=== PATIENT | female | born 1930 | race Hispanic/Latino ===

== ENCOUNTER 2016-12-18 15:25 | Inpatient (IN) | payer MEDICARE ==
[2016-12-18] MEDS ORDERED: Sodium Chloride 0.9% 500 ML IV STA (15:56)
--- NOTE | 2016-12-18 15:57 | ED PDOC ---
HPI: Abdomen Time Seen by Provider: 12/18/16 15:44 Chief Complaint (Nursing): Abdominal Pain Chief Complaint (Provider): Abdominal Pain History Per: Patient History/Exam Limitations: no limitations Onset/Duration Of Symptoms: Days Current Symptoms Are (Timing): Still Present Additional Complaint(s): 85 y/o female with a past medical history of hypertension who presents to the emergency department with a complaint of constipation and abdominal discomfort since 12/09/2016. Associated with urinating less then usual. Patient states she experienced diarrhea from 12/05/2016-12/08/2016 after taking plaquenil for 3 weeks, she consulted her doctor who told her pills had no association with symptom. Reports taking 3 laxatives on 12/16/2016, and then used fleet along with 2 more laxative pills on 12/17/2016 with very small amount of stool. Denies using blood thinners, vision changes, dysuria, chest pain, fever, chills , or shortness of breath. Of note, patient visited [facility] about 1.5 weeks ago for diarrhea, given Magnesium with IV fluids, and discharged home after feeling better. Past Medical History Reviewed: Historical Data, Nursing Documentation, Vital Signs Vital Signs: Last Vital Signs Temp 97.6 F 12/18/16 15:30 Pulse 72 12/18/16 15:30 Resp 16 12/18/16 15:30 BP 164/75 H 12/18/16 15:30 Pulse Ox 97 12/18/16 22:14 - Medical History PMH: Arthritis, HTN, Hypercholesterolemia Denies: Hyperthyroidism, Chronic Kidney Disease - Surgical History Surgical History: (x4) - Family History Family History: States: Unknown Family Hx - Social History Alcohol: None Drugs: Denies - Home Medications Home Medications: Ambulatory Orders Medication Instructions Recorded Ascorbic Acid [Vitamin C] 1 tab PO DAILY 06/26/15 Aspirin [Aspirin EC] 81 mg PO DAILY 06/26/15 Atenolol [Tenormin] 50 mg PO DAILY 06/26/15 Calcium Carbonate/Vitamin D3 1 tab PO BID 06/26/15 [Calcium 600 + Vit D Caplet] Cinnamon Bark [Cinnamon] 1,000 mg PO DAILY 06/26/15 Hydrochlorothiazide [HCTZ] 1 tab PO DAILY 06/26/15 Lovastatin [Lovastatin] 1 tab PO HS 06/26/15 Patient Own Control [Patient Own 1 tab PO TID 06/26/15 Control] amLODIPine [Norvasc] 1 tab PO DAILY 06/26/15 Azithromycin [Zithromax] 250 mg PO DAILY #5 tab 06/27/15 Docusate [Colace] 100 mg PO BID #0 cap 06/27/15 Ferrous Sulfate 325 mg PO BID #0 tablet 06/27/15 Oseltamivir Phosphate [Tamiflu] 75 mg PO BID #5 capsule 06/27/15 Ibuprofen [Motrin] 600 mg PO Q6 PRN #20 tab 05/14/16 - Allergies Allergies/Adverse Reactions: Allergies Allergy/AdvReac Type Severity Reaction Status Date / Time iodine AdvReac VOMITING Verified 12/18/16 15:52 Review of Systems ROS Statement: Except As Marked, All Systems Reviewed And Found Negative Constitutional: Negative for: Fever, Chills Eyes: Negative for: Vision Change Respiratory: Negative for: Cough, Shortness of Breath Gastrointestinal: Positive for: Abdominal Pain, Diarrhea (Had resolved since), Constipation Genitourinary Female: Positive for: Other (Urinating less than usual). Negative for: Dysuria Physical Exam - Reviewed Nursing Documentation Reviewed: Yes Vital Signs Reviewed: Yes - Physical Exam Appears: Positive for: Non-toxic, No Acute Distress Head Exam: Positive for: ATRAUMATIC, NORMAL INSPECTION, NORMOCEPHALIC Skin: Positive for: Normal Color, Warm, Dry Eye Exam: Positive for: Normal appearance, EOMI ENT: Positive for: Normal ENT Inspection. Negative for: Nasal Congestion Neck: Positive for: Normal, Painless ROM, Supple Cardiovascular/Chest: Positive for: Regular Rate, Rhythm, Chest Non Tender. Negative for: Murmur Respiratory: Positive for: Normal Breath Sounds. Negative for: Accessory Muscle Use, Wheezing, Respiratory Distress Gastrointestinal/Abdominal: Positive for: Soft, Tenderness (Diffuse). Negative for: Normal Exam, Distended, Guarding Back: Positive for: Normal Inspection. Negative for: L CVA Tenderness, R CVA Tenderness Extremity: Positive for: Normal ROM. Negative for: Tenderness, Pedal Edema Neurologic/Psych: Positive for: Alert, Oriented (x3) - Laboratory Results Result Diagrams: 12/18/16 16:42 12/18/16 16:42 Interpretation Of Abn Labs: 11.2 wbc - ECG O2 Sat by Pulse Oximetry: 97 (RA) Pulse Ox Interpretation: Normal - CT Scan/US ct Other Rad Studies (CT/US): Read By Radiologist Other Rad Interpretation: diverticulitis, ?microperf - Progress ED Course And Treament: 2246: Stable. AAOx3. Pain free. Will admit pt. Dr. Concepcion spoken to and will consult. Agree with current plans. Spoke with Dr. Field, will admit and give further orders when pt. reaches floor. Surgery resident paged. 2308: Spoke with neurosurgical physician assistant. Will consult and he will speak with Dr. Morris. Medical Decision Making Medical Decision Making: Time: 155 Initial impression: Abdominal pain and constipation Initial plan: --CMP --Troponin I --Urine DIP --CBC w/ diff --PTT & Prothrombin --Obstructive Series --Sodium Chloride 100 mls/hr IV --Admit to hospital routine: ED Obs for abdominal pain. 170 Obstructive Series Dictated By: Dilip Patten MD. Findings: Chest: Lungs Clear Cardiovascular: normal size heart. No pulmonary vascular congestion. Pleura: No pleural fluid. No pneumothorax. Other findings: none. Abdomen and Pelvis: Bowel- unremarkable bowel gas pattern. No evidence of mechanical obstruction. Free Air: None Bones: Unremarkable Other findings: None Impression: Unremarkable radiographs of chest and abdomen. No evidence of mechanical bowel obstruction. Any further documentation will be included within ED Obs section of chart. Scribe Attestation: Documented by Blanquita Roberts and Marlen parker, acting as a scribe for Hilton Nice MD. Provider Scribe Attestation: All medical record entries made by the Scribe were at my direction and personally dictated by me. I have reviewed the chart and agree that the record accurately reflects my personal performance of the history, physical exam, medical decision making, and the department course for this patient. I have also personally directed, reviewed, and agree with the discharge instructions and disposition. ED OBSERVATION Discharge: Yes Date of observation admission: 12/18/16 Time of observation admission: 15:56 - Observation admission statement Patient is being placed in observation because:: Abdominal pain - Goals of Observation Goals of observation are:: resolution of symptoms and completion of obstructive series. - Progress Note Progress Note: 12/18/16 17:44 Continued monitoring for pain. 12/18/16 19:33 Continued pain monitoring, pending CT. 12/18/16 20:25 Continued pain monitoring, pending CT. 12/18/16 22:03 Dictated by: Rosetta Norman MD CT Abdomen and Pelvis Without Intravenous Contrast CLINICAL HISTORY: 85 years old, female; Pain; Abdominal pain TECHNIQUE: Axial computed tomography images of the abdomen and pelvis without intravenous contrast. All CT scans at this facility use one or more dose reduction techniques, viz.: automated exposure control; ma/kV adjustment per patient size (including targeted exams where dose is matched to indication; i.e. head); or iterative reconstruction technique. Coronal and sagittal reformatted images were created and reviewed. COMPARISON: MR - PELVIS WITHOUT CONTRAST 02/06/2015 4:35:26 PM FINDINGS: Atelectasis/scarring at the lung bases. Again noted is evidence of hepatic cyst(s), maximum dimension of 1.4 cm, adjacent to the gallbladder fundus. The unenhanced spleen, pancreas and adrenal glands demonstrate no acute abnormalities. No obstructing renal calculus or hydronephrosis. Evidence of bilateral renal cysts, the size and lack of contrast limits evaluation, largest is on the left measuring approximately 1.2 cm. Please note evaluation for underlying visceral lesions/abnormalities limited without intravenous contrast. Atherosclerosis. Small hiatal hernia. No small bowel obstruction. Retained fecal material in the colon. Colonic diverticula. Segment of sigmoid colon demonstrates significant bowel wall thickening and surrounding fluid/inflammatory stranding most consistent with diverticulitis. Adjacent foci of air may be within diverticula, but microperforation can not be excluded. Degenerative changes. IMPRESSION: Appearance most consistent with acute diverticulitis. Adjacent foci of air may be within diverticula, but microperforation cannot be excluded. Details as above. Please see additional details/findings as above. The above findings may warrant followup evaluation. Disposition - Clinical Impression Clinical Impression: Diverticulitis - Patient ED Disposition Is Patient to be Admitted: Yes Counseled Patient/Family Regarding: Studies Performed, Diagnosis - Disposition Disposition Time: 21:50 Condition: FAIR - Pt Status Changed To: Hospital Disposition Of: Inpatient - Admit Certification Admit to Inpatient:: After my assessment, the patient will require hospitalization for at least two midnights. This is because of the severity of symptoms shown, intensity of services needed, and/or the medical risk in this patient being treated as an outpatient. - POA Present On Arrival: None
[2016-12-18 16:46] LABS: BASO # 0.1 K/uL (0.0-0.2); BASO % 0.8 % (0.0-2.0); EOS # 0.1 K/uL (0.0-0.7); EOS % 0.5 % (0.0-4.0); HEMATOCRIT 31.8 % (34.0-47.0); LYMPH # 1.6 K/uL (1.0-4.3); LYMPH % 13.9 % (20.0-40.0); MEAN CELL VOLUME 86.8 fl (81.0-99.0); MEAN CORPUSCULAR HGB CONC 33.4 g/dL (33.0-37.0); MEAN PLATELET VOLUME 7.6 fl (7.2-11.7); MONO # 0.9 K/uL (0.0-0.8); MONO % 7.7 % (0.0-10.0); NEUT # 8.6 K/uL (1.8-7.0); NEUT % 77.1 % (50.0-75.0); RED CELL DISTRIBUTION WIDTH 13.3 % (11.5-14.5); WHITE BLOOD COUNT 11.2 K/uL (4.8-10.8)
[2016-12-18 17:02] LABS: ALB/GLOB RATIO 1.4 (1.0-2.1); ALKALINE PHOSPHATASE 76 U/L (38-126); ALT/SGPT 24 U/L (9-52); AST/SGOT 25 U/L (14-36); BILIRUBIN,TOTAL 0.5 mg/dl (0.2-1.3); BLOOD UREA NITROGEN 20 mg/dl (7-17); CARBON DIOXIDE 31 mmol/L (22-30); CHLORIDE 97 mmol/L (98-107); GFR AFRICAN-AMERICAN 47; GLUCOSE,RANDOM 117 mg/dL (65-105); PARTIAL THROMBOPLASTIN TIME 29.4 Seconds (25.6-37.1); POTASSIUM 3.8 MMOL/L (3.6-5.0); SODIUM 137 mmol/l (132-148); TOTAL PROTEIN 7.1 G/DL (6.3-8.2)
--- NOTE | 2016-12-18 17:05 | RAD ---
PROCEDURE: Radiographs of the chest and abdomen (obstructive series) HISTORY: Left lower quadrant abdominal pain COMPARISON: No prior. TECHNIQUE: AP radiograph of the chest, with upright and supine radiographs of the abdomen. FINDINGS: CHEST: Lungs: Clear. Cardiovascular: Normal size heart. No pulmonary vascular congestion. Pleura: No pleural fluid. No pneumothorax. Other findings: None. ABDOMEN AND PELVIS: Bowel: Unremarkable bowel gas pattern. No evidence of mechanical obstruction. Free air: None. Bones: Unremarkable. Other findings: None. IMPRESSION: Unremarkable radiographs of chest and abdomen. No evidence of mechanical bowel obstruction.
[2016-12-18] MEDS ORDERED: Barium Sulfate Susp 2.1% w/v, 2.0% w/w 450 mL Bottle PO ONE ×3 (18:00→20:00)
--- NOTE | 2016-12-18 22:04 | CT ---
EXAM: CT Abdomen and Pelvis Without Intravenous Contrast CLINICAL HISTORY: 85 years old, female; Pain; Abdominal pain TECHNIQUE: Axial computed tomography images of the abdomen and pelvis without intravenous contrast. All CT scans at this facility use one or more dose reduction techniques, viz.: automated exposure control; ma/kV adjustment per patient size (including targeted exams where dose is matched to indication; i.e. head); or iterative reconstruction technique. Coronal and sagittal reformatted images were created and reviewed. COMPARISON: MR - PELVIS WITHOUT CONTRAST 02/06/2015 4:35:26 PM FINDINGS: Atelectasis/scarring at the lung bases. Again noted is evidence of hepatic cyst(s), maximum dimension of 1.4 cm, adjacent to the gallbladder fundus. The unenhanced spleen, pancreas and adrenal glands demonstrate no acute abnormalities. No obstructing renal calculus or hydronephrosis. Evidence of bilateral renal cysts, the size and lack of contrast limits evaluation, largest is on the left measuring approximately 1.2 cm. Please note evaluation for underlying visceral lesions/abnormalities limited without intravenous contrast. Atherosclerosis. Small hiatal hernia. No small bowel obstruction. Retained fecal material in the colon. Colonic diverticula. Segment of sigmoid colon demonstrates significant bowel wall thickening and surrounding fluid/inflammatory stranding most consistent with diverticulitis. Adjacent foci of air may be within diverticula, but microperforation can not be excluded. Degenerative changes. IMPRESSION: Appearance most consistent with acute diverticulitis. Adjacent foci of air may be within diverticula, but microperforation cannot be excluded. Details as above. Please see additional details/findings as above. The above findings may warrant followup evaluation.
[2016-12-18] MEDS ORDERED: Ciprofloxacin 400mg/200ml D5W 400 MG/200 ML BAG IV STA (22:45)
[2016-12-18] MEDS ORDERED: metroNIDAZOLE 500mg/100ml NS 100 ML IV STA (22:45)
[2016-12-18] MEDS ORDERED: Piperacillin/Tazobact 3.375 GM in Sodium Chloride 0.9% 100 ML IV STA (23:06)
[2016-12-19] MEDS ORDERED: Piperacillin/Tazobact 3.375 gm Inj IVPB ONE (00:13)
--- NOTE | 2016-12-19 00:21 | CP.PCM.CON ---
<Gerardo Garcia - Last Filed: 12/19/16 00:51> History of Present Illness - History of Present Illness History of Present Illness: Surgery Consult Note. Dr. Morris 85yo F with PMHx of HTN, HLD, OA, Polymyalgia Rheumatica here for evaluation of constipation and abdominal discomfort. Patient states that she was diagnosed with polymyalgia rheumatica about 1 year ago and was on steroids which were slowly tapered off. She was recently started on Plaquenil about 3 weeks ago and since then, she noted intermittent constipation and diarrhea. On 12/09, she went to [facility] for evaluation of a few episodes of Nausea, vomiting ( non bloody, non bilious) and Diarrhea (non bloody, non melanotic) and was discharged home after some fluids and magnesium. She took increasing amounts of Immodium at home and has since been constipated for the past 10 days. She states that for the past 3 days, she has had worsening abdominal pain, located in the LLQ, described as sharp in quality. Denies any remitting factors. She denies any F/C. No CP/SOB. No headaches. Does report some decreased urinary frequency over the past 2 days. In the ER, patient reports multiple BMs, normal quality, no blood, not dark. She still reports LLQ abdominal pain. Her last food intake was breakfast on 12/18. She reports that she was diagnosed with acute uncomplicated diverticulitis about 3-4 years ago, treated with outpatient antibiotics. PMD: Dr. Staci Álvarez Cardio: Damle PMHx: HTN, HLD, Osteoarthritis, Polymyalgia Rheumatica PSHx: Bilateral Cataracts; Bilateral breast biopsies (benign bx), C.Section x4, L Arm ORIF for comminuted Fx Family Hx: Breast CA in 3 of her Sisters Social Hx: Denies Tob, Denies ETOH, Denies illicit drugs. Lives alone. Closest daughter lives in [place]. Allergy: Iodine ("upset stomach") Review of Systems - Review of Systems All systems: reviewed and no additional remarkable complaints except - Constitutional Constitutional: absent: Chills, Fever - Cardiovascular Cardiovascular: absent: Chest Pain, Dyspnea - Respiratory Respiratory: absent: Cough, Dyspnea - Gastrointestinal Gastrointestinal: Abdominal Pain, Constipation, Diarrhea, Nausea, Vomiting. absent: Hematochezia, Melena - Genitourinary Genitourinary: absent: Dysuria - Neurological Neurological: absent: Dizziness - Psychiatric Psychiatric: absent: Anxiety Past Patient History - Infectious Disease Hx of Infectious Diseases: None - Past Medical History & Family History Past Medical History?: Yes Past Family History: Reviewed and not pertinent - Past Social History Smoking Status: Never Smoked Alcohol: None Drugs: Denies - CARDIAC Hx Hypercholesterolemia: Yes Hx Hypertension: Yes - PULMONARY Hx Respiratory Disorders: No - NEUROLOGICAL Hx Neurological Disorder: No - HEENT Hx HEENT Problems: Yes Hx Cataracts: Yes - RENAL Hx Chronic Kidney Disease: No - ENDOCRINE/METABOLIC Hx Hyperthyroidism: No - HEMATOLOGICAL/ONCOLOGICAL Hx Blood Disorders: No Hx Blood Transfusions: Yes (x 1, years ago) - MUSCULOSKELETAL/RHEUMATOLOGICAL Hx Arthritis: Yes - GASTROINTESTINAL Hx Gastrointestinal Disorders: No - GENITOURINARY/GYNECOLOGICAL Other/Comment: jonah. breast biopsy - PSYCHIATRIC Hx Psychophysiologic Disorder: No Hx Substance Use: No - SURGICAL HISTORY Hx Cataract Extraction: Yes (bilateral eyes) Hx Section: Yes (x4) Hx Open Reduction Internal Fixation: Yes (Left arm) Other/Comment: Left arm surgery, bilateral breast biospsies. - ANESTHESIA Hx Anesthesia: Yes Hx Anesthesia Reactions: No Meds Allergies/Adverse Reactions: Allergies Allergy/AdvReac Type Severity Reaction Status Date / Time iodine AdvReac VOMITING Verified 12/18/16 15:52 Physical Exam - Constitutional Appears: Well, Non-toxic, No Acute Distress - Head Exam Head Exam: ATRAUMATIC, NORMAL INSPECTION, NORMOCEPHALIC - Eye Exam Eye Exam: EOMI, Normal appearance - ENT Exam ENT Exam: Mucous Membranes Moist - Neck Exam Neck exam: Positive for: Full Rom - Respiratory Exam Respiratory Exam: Clear to Auscultation Bilateral, NORMAL BREATHING PATTERN. absent: Accessory Muscle Use, Decreased Breath Sounds, Rhonchi, Wheezes, Respiratory Distress - Cardiovascular Exam Cardiovascular Exam: REGULAR RHYTHM, RRR, +S1, +S2. absent: Diastolic murmur, JVD, Systolic Murmur - GI/Abdominal Exam GI & Abdominal Exam: Soft, Tenderness (LLQ tender to palpation). absent: Distended, Firm, Guarding, Rebound - Extremities Exam Extremities exam: Positive for: normal inspection. Negative for: calf tenderness, pedal edema - Back Exam Back exam: NORMAL INSPECTION - Neurological Exam Neurological exam: Alert, CN II-XII Intact, Normal Gait, Oriented x3 - Psychiatric Exam Psychiatric exam: Normal Affect, Normal Mood - Skin Skin Exam: Dry, Intact, Normal Color, Warm Results - Vital Signs Recent Vital Signs: Last Vital Signs Temp 97.6 F 12/18/16 15:30 Pulse 72 12/18/16 15:30 Resp 16 12/18/16 15:30 BP 164/75 H 12/18/16 15:30 Pulse Ox 97 12/18/16 23:10 - Labs Result Diagrams: 12/18/16 16:42 12/18/16 16:42 Assessment & Plan - Assessment and Plan (Free Text) Assessment: 85yo F with acute diverticulitis w/ possible microperforation - CT Abd/Pelvis noted - Leukocytosis 11.2. Afebrile - NPO for bowel rest - IVF - f/u Blood Cxs - Zosyn - Zofran - Pain management - serial abdominal exams and advance diet slowly as clinical status improves Further Recs as per Dr. Arturo Garcia PGY1 surgery pager: [phone] <Ankush Morris - Last Filed: 12/20/16 15:59> Meds - Medications Medications: Current Medications Amlodipine Besylate (Norvasc) 5 mg PO DAILY [facility] Last Admin: 12/20/16 08:39 Dose: 5 mg Ascorbic Acid (Vitamin C 500 Mg Tab) 1,000 mg PO DAILY [facility] Last Admin: 12/20/16 08:41 Dose: 1,000 mg Aspirin (Ecotrin) 81 mg PO DAILY [facility] Last Admin: 12/20/16 08:38 Dose: 81 mg Atenolol (Tenormin) 50 mg PO DAILY [facility] Last Admin: 12/20/16 08:40 Dose: 50 mg Calcium/Vitamin D (Oyster Shell Calcium/Vitamin D 500 Mg-200 Iu) 1 tab PO BID [facility] Last Admin: 12/20/16 08:40 Dose: 1 tab Enoxaparin Sodium (Lovenox) 40 mg SC DAILY [facility] PRN Reason: Protocol Last Admin: 12/20/16 08:38 Dose: 40 mg Ferrous Sulfate (Feosol) 325 mg PO DAILY [facility] Last Admin: 12/20/16 08:38 Dose: 325 mg Home Med (Cinnamon Bark [Cinnamon]) 1,000 mg PO DAILY [facility] Home Med (Plant Stanol Nanette [Cholest Off]) 450 mg PO DAILY [facility] Hydrochlorothiazide (Microzide) 12.5 mg PO DAILY [facility] Last Admin: 12/20/16 08:39 Dose: 12.5 mg Piperacillin Sod/Tazobactam (Sod 3.375 gm/ Sodium Chloride) 100 mls @ 100 mls/ hr IVPB Q6 [facility] Last Admin: 12/20/16 09:47 Dose: 100 mls/hr Vancomycin HCl 1 gm/ Sodium (Chloride) 250 mls @ 166.667 mls/hr IVPB Q12 [facility] Last Admin: 12/20/16 12:38 Dose: 166.667 mls/hr Ondansetron HCl (Zofran Inj) 4 mg IVP Q4 PRN PRN Reason: Nausea/Vomiting Last Admin: 12/20/16 08:46 Dose: 4 mg Oxycodone/Acetaminophen (Percocet 5/325 Mg Tab) 1 tab PO Q6 PRN PRN Reason: Pain, moderate (4-7) Stop: 12/23/16 15:14 Pantoprazole Sodium (Protonix Ec Tab) 40 mg PO BID [facility] Last Admin: 12/20/16 08:40 Dose: 40 mg Pravastatin Sodium (Pravachol) 20 mg PO HS [facility] Last Admin: 12/19/16 21:31 Dose: 20 mg Results - Vital Signs Recent Vital Signs: Last Vital Signs Temp 98.3 F 12/20/16 15:45 Pulse 56 L 12/20/16 15:45 Resp 18 12/20/16 15:45 BP 154/73 H 12/20/16 15:45 Pulse Ox 95 12/20/16 15:45 - Labs Result Diagrams: 12/20/16 05:45 12/20/16 05:45 Labs: Laboratory Results - last 24 hr 12/20/16 12/20/16 12/20/16 05:45 05:45 10:45 WBC 7.7 RBC 3.37 L Hgb 9.8 L Hct 29.6 L MCV 87.9 MCH 29.2 MCHC 33.2 RDW 13.1 Plt Count 327 Sodium 141 Potassium 3.9 Chloride 101 Carbon Dioxide 30 Anion Gap 14 BUN 11 Creatinine 1.2 Est GFR ( Amer) 52 Est GFR (Non-Af Amer) 43 Random Glucose 105 Calcium 9.5 Total Bilirubin 0.5 AST 23 ALT 28 Alkaline Phosphatase 57 Total Protein 6.1 L Albumin 3.4 L Globulin 2.8 Albumin/Globulin Ratio 1.2 Triglycerides 122 Cholesterol 164 LDL Cholesterol Direct 88 HDL Cholesterol 32 Urine Color Straw Urine Clarity Clear Urine pH 7.0 Ur Specific [place] 1.013 Urine Protein Negative Urine Glucose (UA) Neg Urine Ketones Negative Urine Blood Negative Urine Nitrate Negative Urine Bilirubin Negative Urine Urobilinogen 0.2-1.0 Ur Leukocyte Esterase Neg Urine RBC (Auto) 1 Urine Microscopic WBC 5 Ur Squamous Epith Cells < 1 Attending/Attestation - Attestation I have personally seen and examined this patient.: Yes I have fully participated in the care of the patient.: Yes I have reviewed all pertinent clinical information: Yes Notes (Text): 12/20/16 15:57 Pt was seen and examined at bedside Agree with above note and assessment Pt with Diverticulitis with microperforation LlQ tenderness Labs and radiology reviewed C/w IV antibiotics Start liquid diet Plan d/w pt in detail Risk and benefit explained in detail.
[2016-12-19] MEDS ORDERED: Lactated Ringer's 1,000 ML IV SCH (00:45)
[2016-12-19 03:56] LABS: VENOUS BLOOD GAS PCO2 43 mmHg (40-60); VENOUS BLOOD PH 7.46 (7.32-7.43)
[2016-12-19] MEDS: Piperacillin/Tazobact 3.375 GM in Sodium Chloride 0.9% 100 ML IVPB SCH ×4 (04:51→21:29)
[2016-12-19] MEDS ORDERED: Potassium CL 10mEq/100ml 100 ML IVPB SCH (07:00)
[2016-12-19 07:40] LABS: ALB/GLOB RATIO 1.3 (1.0-2.1); BILIRUBIN,TOTAL 0.7 mg/dl (0.2-1.3); CALCIUM 9.8 mg/dL (8.4-10.2); POTASSIUM 3.6 MMOL/L (3.6-5.0); TOTAL PROTEIN 6.5 G/DL (6.3-8.2)
[2016-12-19 07:41] LABS: BASO # 0.1 K/uL (0.0-0.2); BASO % 0.8 % (0.0-2.0); EOS # 0.2 K/uL (0.0-0.7); HEMATOCRIT 30.1 % (34.0-47.0); LYMPH # 3.4 K/uL (1.0-4.3); LYMPH % 29.4 % (20.0-40.0); MEAN CELL VOLUME 87.4 fl (81.0-99.0); MEAN CORPUSCULAR HEMOGLOBIN 29.3 pg (27.0-31.0); MEAN CORPUSCULAR HGB CONC 33.6 g/dL (33.0-37.0); MEAN PLATELET VOLUME 7.9 fl (7.2-11.7); MONO # 1.1 K/uL (0.0-0.8); NEUT # 6.7 K/uL (1.8-7.0); NEUT % 57.8 % (50.0-75.0); RED CELL DISTRIBUTION WIDTH 12.9 % (11.5-14.5); WHITE BLOOD COUNT 11.5 K/uL (4.8-10.8)
--- NOTE | 2016-12-19 07:41 | CARD ---
APPROVED REPORT EKG Measurement Heart [id number] MD [id number] <Conclusion> Normal sinus rhythm Moderate voltage criteria for LVH, may be normal variant Nonspecific ST abnormality Abnormal ECG
[2016-12-19 07:52] LABS: T4 11.6 ug/dl (5.5-11.0)
[2016-12-19 08:06] LABS: THYROID STIMULATING HORMONE 4.31 mIU/ML (0.46-4.68)
[2016-12-19] MEDS ORDERED: ASCORBIC ACID PO SCH (09:00)
[2016-12-19] MEDS ORDERED: [UNRECOGNIZED DRUG - REMARK] PO SCH (09:00)
[2016-12-19] MEDS ORDERED: HYDROCHLOROTHIAZIDE PO SCH (09:00)
[2016-12-19] MEDS: Calcium-Vit D 500 mg-200 Units Tab UD PO SCH ×2 (09:34→16:56)
[2016-12-19] MEDS: Pantoprazole 40 mg EC Tab PO SCH ×2 (09:34→16:56)
[2016-12-19] MEDS: Potassium Ch 20mEq in D5-1/2NS 1,000 ML IV SCH (09:53)
[2016-12-19] MEDS: Enoxaparin 40 mg Syringe SC SCH (09:53)
--- NOTE | 2016-12-19 11:58 | HP ---
CHIEF COMPLAINT: Abdominal pain. HISTORY OF PRESENT ILLNESS: This is an 85-year-old female known case of hypertension, elevated cholesterol, arthritis who was recently started Plaquenil about 3 weeks ago and the patient started having diarrhea and abdominal pain which did not improved. The patient did reach out to the physician prescribing Plaquenil but they say that symptoms are not related to medication but the patient continue to have symptoms. The patient was brought to emergency room and was admitted for further management. REVIEW OF SYSTEM: Positive for abdominal pain. Review of system otherwise is negative for headache, dizziness, syncope, loss of consciousness, chest pain, shortness of breath, nausea, vomiting, constipation, any joint or extremity pain or any new neurological symptoms. Review of system also is positive for abdominal pain and diarrhea. Review of systems of all other organ system is unremarkable. PAST MEDICAL HISTORY: Significant for hypertension, elevated cholesterol, arthritis, probably polymyalgia rheumatica which the patient was told she has. PAST SURGICAL HISTORY: The patient has section few times. PERSONAL AND FAMILY HISTORY: Noncontributory. MEDICATIONS: The patient is on multiple medication including aspirin, vitamin C, atenolol, vitamin D, hydrochlorothiazide, Lovastatin, Norvasc, Zithromax, Colace, ferrous sulphate, tramadol and Motrin. The patient also takes multiple [id number] supplements. ALLERGIES: THE PATIENT IS ALLERGIC TO IODINE. PHYSICAL EXAMINATION GENERAL: Well built, well nourished 85-year-old female in no acute distress. VITAL SIGNS: Temperature 98.6, pulse 52, respirations 20, and blood pressure 129/70. HEENT: Pupils are reacting to light. No nystagmus. Normocephalic and atraumatic skull. NECK: No JVD. No thyromegaly. No lymphadenopathy. HEART: S1 and S2 normal and regular. No significant murmur, gallop, or rub is heard. LUNGS: Shows good bilateral air entry. No rales or rhonchi. ABDOMEN: There is a mild left lower quadrant tenderness. No sign of acute abdomen. No guarding. No rigidity. No rebound. Bowel sounds are plus. EXTREMITIES: No edema. No calf swelling. No tenderness. No acute ischemia. CENTRAL NERVOUS SYSTEM: Essentially unchanged the patient usual examined. There is no sign of any acute gross focal motor or sensory neurological deficit. DIAGNOSTIC DATA: Available diagnostic data reviewed. WBC 11.5, hemoglobin 10.1, hematocrit 30.1, platelets 376. Lactic acid 59. Sodium 139, potassium 3.6, chloride 98, bicarbonate 30, BUN 14, creatinine 1.1. SMA-12 is unremarkable. Abdominal CAT scan is consistent with acute diverticulitis with possibility of microperforation. EKG does not reveal any acute ST-T changes. Abdominal x-ray does not reveal free air. ADMITTING IMPRESSION: Acute diverticulitis, hypertension, elevated cholesterol, questionable polymyalgia rheumatica, and arthritis. PLAN: As ordered. Case and plan discussed with the patient. Merritt Field MD
[2016-12-19] MEDS ORDERED: Potassium Ch 20mEq in D5-1/2NS 1,000 ML IV SCH (15:00)
[2016-12-19] MEDS: Pravastatin Sodium 20 MG TAB PO SCH (21:31)
[2016-12-19] MEDS ORDERED: LOVASTATIN PO SCH (22:00)
[2016-12-20] MEDS: Piperacillin/Tazobact 3.375 GM in Sodium Chloride 0.9% 100 ML IVPB SCH ×4 (05:13→23:23)
[2016-12-20] MEDS: Potassium Ch 20mEq in D5-1/2NS 1,000 ML IV SCH (05:14)
--- NOTE | 2016-12-20 06:47 | CON ---
DATE: 12/19/2016 REASON FOR CONSULTATION: Diverticulitis. HISTORY OF PRESENT ILLNESS: This is a hector 85-year-old female with a history of hypertension, hypercholesterolemia, and arthritis. She was subsequently started on Plaquenil, then developed diarrhea and abdominal pain, which did not improve, and now comes in to the hospital with left lower quadrant discomfort and appears to be having diverticulitis. The patient is currently lying in bed comfortably, in no apparent distress. Pain is much improved. Nausea is improved. Diarrhea is improving. Lying in bed comfortably, in no apparent distress. PAST MEDICAL HISTORY: As above. PAST SURGICAL HISTORY: As above. MEDICATIONS: Have been reviewed. REVIEW OF SYSTEMS: All other systems have been reviewed and negative apart from the HPI. PHYSICAL EXAMINATION: VITAL SIGNS: In the hospital grossly remarkable. GENERAL: Pleasant elderly appearing female, lying in bed comfortable, in no apparent distress. HEENT: Head is normocephalic and atraumatic. Eyes, pupils are equal, round, and reactive to light bilaterally. No conjunctival pallor or icterus. NECK: Supple. Normal range of motion. No lymphadenopathy appreciated. LUNGS: Coarse breath sounds. HEART: S1, S2, regular rate and rhythm. No murmurs appreciated. ABDOMEN: Soft and nontender. Some discomfort in the left lower quadrant. No rebound. No guarding. RECTAL: Deferred. EXTREMITIES: Pulses felt bilaterally. SKIN: Warm, dry and intact. NEUROLOGIC: A and O x3. LABORATORY DATA: Labs and radiology have been reviewed. Radiology shows a CAT scan, which shows acute diverticulitis in the sigmoid with questionable microperforation. Labs, WBC 11.2, hemoglobin 11.5, hematocrit is 34.1, and platelet count is 376. ASSESSMENT AND PLAN: This is an 85-year-old female with diverticulitis, questionable microperforation. From gastrointestinal standpoint, antibiotics with NPO, obtain surgical evaluation. If pain free, can start oral liquid diet, advance slowly; will require colonoscopy in 6 to 8 weeks from now. Thank you for the consult. Andrea Longo MD/ PhD cc:
[2016-12-20 06:52] LABS: HEMATOCRIT 29.6 % (34.0-47.0); MEAN CELL VOLUME 87.9 fl (81.0-99.0); MEAN CORPUSCULAR HEMOGLOBIN 29.2 pg (27.0-31.0); MEAN CORPUSCULAR HGB CONC 33.2 g/dL (33.0-37.0); RED CELL DISTRIBUTION WIDTH 13.1 % (11.5-14.5); WHITE BLOOD COUNT 7.7 K/uL (4.8-10.8)
[2016-12-20 07:05] LABS: ALB/GLOB RATIO 1.2 (1.0-2.1); BILIRUBIN,TOTAL 0.5 mg/dl (0.2-1.3); CALCIUM 9.5 mg/dL (8.4-10.2); POTASSIUM 3.9 MMOL/L (3.6-5.0); TOTAL PROTEIN 6.1 G/DL (6.3-8.2)
--- NOTE | 2016-12-20 08:19 | CP.PCM.PN ---
<Edwina Cabrera - Last Filed: 12/20/16 08:16> Subjective - Date & Time of Evaluation Date of Evaluation: 12/20/16 Time of Evaluation: 07:10 - Subjective Subjective: Patient seen and examined at bedside this AM. Denies any pain, tolerated CLD last night without any pain or nausea. Is passing gas. Would like to advance her diet Objective - Vital Signs/Intake and Output Vital Signs (last 24 hours): Temp Pulse Resp BP Pulse Ox 98 F 60 19 156/71 H 95 12/20/16 03:54 12/20/16 03:54 12/20/16 03:54 12/20/16 03:54 12/20/16 03:54 - Medications Medications: Current Medications Amlodipine Besylate (Norvasc) 5 mg PO DAILY [facility] Last Admin: 12/19/16 09:33 Dose: 5 mg Ascorbic Acid (Vitamin C 500 Mg Tab) 1,000 mg PO DAILY [facility] Last Admin: 12/19/16 09:34 Dose: 1,000 mg Aspirin (Ecotrin) 81 mg PO DAILY [facility] Last Admin: 12/19/16 09:33 Dose: 81 mg Atenolol (Tenormin) 50 mg PO DAILY [facility] Last Admin: 12/19/16 09:34 Dose: 50 mg Calcium/Vitamin D (Oyster Shell Calcium/Vitamin D 500 Mg-200 Iu) 1 tab PO BID [facility] Last Admin: 12/19/16 16:56 Dose: 1 tab Enoxaparin Sodium (Lovenox) 40 mg SC DAILY [facility] PRN Reason: Protocol Last Admin: 12/19/16 09:53 Dose: 40 mg Ferrous Sulfate (Feosol) 325 mg PO DAILY [facility] Last Admin: 12/19/16 09:33 Dose: 325 mg Home Med (Cinnamon Bark [Cinnamon]) 1,000 mg PO DAILY [facility] Home Med (Plant Stanol Nanette [Cholest Off]) 450 mg PO DAILY [facility] Hydrochlorothiazide (Microzide) 12.5 mg PO DAILY [facility] Last Admin: 12/19/16 09:33 Dose: 12.5 mg Piperacillin Sod/Tazobactam (Sod 3.375 gm/ Sodium Chloride) 100 mls @ 100 mls/ hr IVPB Q6 [facility] Last Admin: 12/20/16 05:13 Dose: 100 mls/hr Potassium Chloride/Dextrose/Sod Cl (Potassium Chl 20 Meq In D5-1/2ns) 1,000 mls @ 80 mls/hr IV .[id number] [facility] Stop: 12/20/16 09:19 Last Admin: 12/20/16 05:14 Dose: 80 mls/hr Vancomycin HCl 1 gm/ Sodium (Chloride) 250 mls @ 166.667 mls/hr IVPB DAILY [facility] Morphine Sulfate (Morphine) 4 mg IVP Q6 PRN PRN Reason: Pain, moderate (4-7) Last Admin: 12/19/16 01:42 Dose: 4 mg Ondansetron HCl (Zofran Inj) 4 mg IVP Q4 PRN PRN Reason: Nausea/Vomiting Last Admin: 12/19/16 12:01 Dose: 4 mg Pantoprazole Sodium (Protonix Ec Tab) 40 mg PO BID [facility] Last Admin: 12/19/16 16:56 Dose: 40 mg Pravastatin Sodium (Pravachol) 20 mg PO HS [facility] Last Admin: 12/19/16 21:31 Dose: 20 mg - Labs Labs: 12/20/16 05:45 12/20/16 05:45 PT 11.2 Seconds (9.8-13.1) 12/18/16 16:42 INR 1.1 (0.9-1.2) 12/18/16 16:42 APTT 29.4 Seconds (25.6-37.1) 12/18/16 16:42 - Constitutional Appears: Well, Non-toxic, No Acute Distress - Head Exam Head Exam: ATRAUMATIC, NORMOCEPHALIC - Eye Exam Eye Exam: Normal appearance. absent: Conjunctival injection, Scleral icterus - ENT Exam ENT Exam: Mucous Membranes Moist, Normal Oropharynx - Respiratory Exam Respiratory Exam: NORMAL BREATHING PATTERN. absent: Accessory Muscle Use, Respiratory Distress - GI/Abdominal Exam GI & Abdominal Exam: Soft, Tenderness (mild tenderness in the LLQ AND LUQ). absent: Distended, Firm, Guarding, Rigid - Extremities Exam Extremities Exam: absent: Calf Tenderness, Pedal Edema, Tenderness - Neurological Exam Neurological Exam: Alert, Awake, Oriented x3 - Psychiatric Exam Psychiatric exam: Normal Affect, Normal Mood - Skin Skin Exam: Dry, Intact, Normal Color, Warm Assessment and Plan - Assessment and Plan (Free Text) Assessment: 85F with acute diverticulitis with possible microperf on CT clinically improving tolerated CLD Plan: -No surgical intervention at this time -If continues to tolerate CLD this AM, advance diet to FLD for lunch -Serial abdominal exams -Continue IFV -Continue antibiotics -Continue medical management per primary team Further recs per Dr. Arturo Cabrera, PGY2 <Ankush Morris - Last Filed: 12/21/16 18:41> Objective - Vital Signs/Intake and Output Vital Signs (last 24 hours): Temp Pulse Resp BP Pulse Ox 98.2 F 60 19 178/70 H 95 12/21/16 15:47 12/21/16 15:47 12/21/16 15:47 12/21/16 15:47 12/21/16 15:47 - Medications Medications: Current Medications Acetaminophen (Tylenol 325mg Tab) 650 mg PO Q6 PRN PRN Reason: Pain, moderate (4-7) Amlodipine Besylate (Norvasc) 5 mg PO DAILY [facility] Last Admin: 12/21/16 12:42 Dose: 5 mg Amlodipine Besylate (Norvasc) 5 mg PO ONCE ONE Stop: 12/21/16 17:22 Ascorbic Acid (Vitamin C 500 Mg Tab) 1,000 mg PO DAILY [facility] Last Admin: 12/21/16 12:44 Dose: 1,000 mg Aspirin (Ecotrin) 81 mg PO DAILY [facility] Last Admin: 12/21/16 12:42 Dose: 81 mg Atenolol (Tenormin) 50 mg PO DAILY [facility] Last Admin: 12/21/16 12:43 Dose: 50 mg Calcium/Vitamin D (Oyster Shell Calcium/Vitamin D 500 Mg-200 Iu) 1 tab PO BID [facility] Last Admin: 12/21/16 17:10 Dose: 1 tab Docusate Sodium/Ferrous Fumarate (Mona-Sequels 100 Mg -150 Mg) 1 tab PO DAILY [facility] Enoxaparin Sodium (Lovenox) 40 mg SC DAILY [facility] PRN Reason: Protocol Last Admin: 12/21/16 09:50 Dose: 40 mg Home Med (Cinnamon Bark [Cinnamon]) 1,000 mg PO DAILY [facility] Home Med (Plant Stanol Nanette [Cholest Off]) 450 mg PO DAILY [facility] Hydrochlorothiazide (Microzide) 12.5 mg PO DAILY [facility] Last Admin: 12/21/16 12:42 Dose: 12.5 mg Piperacillin Sod/Tazobactam (Sod 3.375 gm/ Sodium Chloride) 100 mls @ 100 mls/ hr IVPB Q6 [facility] Last Admin: 12/21/16 17:34 Dose: 100 mls/hr Vancomycin HCl 1 gm/ Sodium (Chloride) 250 mls @ 166.667 mls/hr IVPB Q12 [facility] Last Admin: 12/21/16 08:41 Dose: 166.667 mls/hr Ondansetron HCl (Zofran Inj) 4 mg IVP Q4 PRN PRN Reason: Nausea/Vomiting Last Admin: 12/21/16 17:09 Dose: 4 mg Pantoprazole Sodium (Protonix Ec Tab) 40 mg PO BID [facility] Last Admin: 12/21/16 17:10 Dose: 40 mg Pravastatin Sodium (Pravachol) 20 mg PO HS [facility] Last Admin: 12/20/16 23:25 Dose: 20 mg - Labs Labs: 12/21/16 06:30 12/21/16 06:30 PT 11.2 Seconds (9.8-13.1) 12/18/16 16:42 INR 1.1 (0.9-1.2) 12/18/16 16:42 APTT 29.4 Seconds (25.6-37.1) 12/18/16 16:42 Attending/Attestation - Attestation I have personally seen and examined this patient.: Yes I have fully participated in the care of the patient.: Yes I have reviewed all pertinent clinical information, including history, physical exam and plan: Yes Notes (Text): 12/21/16 18:40 Pt was seen and examined at bedside Agree with above note and assessment Pt with Diverticulitis with microperforation Pt is improving clinically Mild tenderness in LLQ Tolerating liquid diet Repeat Labs in am Plan d.w pt in detail Risk and benefit explained in detail.
[2016-12-20] MEDS: Enoxaparin 40 mg Syringe SC SCH (08:38)
[2016-12-20] MEDS: Calcium-Vit D 500 mg-200 Units Tab UD PO SCH ×2 (08:40→16:45)
[2016-12-20] MEDS: Pantoprazole 40 mg EC Tab PO SCH ×2 (08:40→16:46)
--- NOTE | 2016-12-20 09:04 | CP.PCM.PN ---
Subjective - Date & Time of Evaluation Date of Evaluation: 12/20/16 Time of Evaluation: 15:00 - Subjective Subjective: Patient feeling better. tolerating clear liquid diet. will advance to fulls. Patient denies any abdominal pain, has no appetite. Repeat cultures ordered. Will need outpatient colonoscopy in 6-8 weeks. Objective - Vital Signs/Intake and Output Vital Signs (last 24 hours): Temp Pulse Resp BP Pulse Ox 98.1 F 65 20 169/62 H 93 L 12/20/16 08:18 12/20/16 08:40 12/20/16 08:18 12/20/16 08:40 12/20/16 08:18 - Medications Medications: Current Medications Amlodipine Besylate (Norvasc) 5 mg PO DAILY [facility] Last Admin: 12/20/16 08:39 Dose: 5 mg Ascorbic Acid (Vitamin C 500 Mg Tab) 1,000 mg PO DAILY [facility] Last Admin: 12/20/16 08:41 Dose: 1,000 mg Aspirin (Ecotrin) 81 mg PO DAILY [facility] Last Admin: 12/20/16 08:38 Dose: 81 mg Atenolol (Tenormin) 50 mg PO DAILY [facility] Last Admin: 12/20/16 08:40 Dose: 50 mg Calcium/Vitamin D (Oyster Shell Calcium/Vitamin D 500 Mg-200 Iu) 1 tab PO BID [facility] Last Admin: 12/20/16 08:40 Dose: 1 tab Enoxaparin Sodium (Lovenox) 40 mg SC DAILY [facility] PRN Reason: Protocol Last Admin: 12/20/16 08:38 Dose: 40 mg Ferrous Sulfate (Feosol) 325 mg PO DAILY [facility] Last Admin: 12/20/16 08:38 Dose: 325 mg Home Med (Cinnamon Bark [Cinnamon]) 1,000 mg PO DAILY [facility] Home Med (Plant Stanol Nanette [Cholest Off]) 450 mg PO DAILY [facility] Hydrochlorothiazide (Microzide) 12.5 mg PO DAILY [facility] Last Admin: 12/20/16 08:39 Dose: 12.5 mg Piperacillin Sod/Tazobactam (Sod 3.375 gm/ Sodium Chloride) 100 mls @ 100 mls/ hr IVPB Q6 [facility] Last Admin: 12/20/16 05:13 Dose: 100 mls/hr Potassium Chloride/Dextrose/Sod Cl (Potassium Chl 20 Meq In D5-1/2ns) 1,000 mls @ 80 mls/hr IV .[id number] [facility] Stop: 12/20/16 09:19 Last Admin: 12/20/16 05:14 Dose: 80 mls/hr Vancomycin HCl 1 gm/ Sodium (Chloride) 250 mls @ 166.667 mls/hr IVPB Q12 [facility] Morphine Sulfate (Morphine) 4 mg IVP Q6 PRN PRN Reason: Pain, moderate (4-7) Last Admin: 12/19/16 01:42 Dose: 4 mg Ondansetron HCl (Zofran Inj) 4 mg IVP Q4 PRN PRN Reason: Nausea/Vomiting Last Admin: 12/20/16 08:46 Dose: 4 mg Pantoprazole Sodium (Protonix Ec Tab) 40 mg PO BID [facility] Last Admin: 12/20/16 08:40 Dose: 40 mg Pravastatin Sodium (Pravachol) 20 mg PO HS [facility] Last Admin: 12/19/16 21:31 Dose: 20 mg - Labs Labs: 12/20/16 05:45 12/20/16 05:45 PT 11.2 Seconds (9.8-13.1) 12/18/16 16:42 INR 1.1 (0.9-1.2) 12/18/16 16:42 APTT 29.4 Seconds (25.6-37.1) 12/18/16 16:42 - Constitutional Appears: Well, Non-toxic, No Acute Distress - Head Exam Head Exam: ATRAUMATIC, NORMAL INSPECTION, NORMOCEPHALIC - Eye Exam Eye Exam: EOMI, Normal appearance, PERRL - Respiratory Exam Respiratory Exam: NORMAL BREATHING PATTERN. absent: Accessory Muscle Use, Prolonged Expiratory Phase, Respiratory Distress - Cardiovascular Exam Cardiovascular Exam: REGULAR RHYTHM, +S1, +S2 - GI/Abdominal Exam GI & Abdominal Exam: Soft, Tenderness (mild bilateral lower quadrants), Hypoactive Bowel Sounds. absent: Distended, Guarding - Rectal Exam Rectal Exam: Deferred - Neurological Exam Neurological Exam: Alert, Awake, CN II-XII Intact, Oriented x3 - Psychiatric Exam Psychiatric exam: Normal Affect, Normal Mood - Skin Skin Exam: Dry, Intact, Normal Color, Warm Assessment and Plan - Assessment and Plan (Free Text) Assessment: 85 year old female admitted for acute diverticulitis that is resolving. Leukocytosis has resolved. She remains afebrile. Evaluated by GI, need outpatient colonoscopy in 6-8 weeks. Surgery is following, will continue with medical management. Patient endorses adverse reaction to Cipro, unsure of reaction. states it did not sit well with her stomach. A: #Acute diverticulitis, resolving #NOHEMY, acute, resolved #anemia, chronic #HTN, chronic #DVT prophylaxis P: Advanced diet to fulls. Pain controlled. IV antibiotics as per ID. Repeat blood cultures pending, initial culture: bacillus species, possible contaminant? on feosol/vitamin c for anemia DVT prophylaxis: Lovenox.
[2016-12-20 11:05] LABS: RBC URINE 1 /hpf (0-3); URINE BILIRUBIN NEGATIVE (NEGATIVE); URINE BLOOD NEGATIVE (NEGATIVE); URINE COLOR STRAW (YELLOW); URINE GLUCOSE (UA) NEG (Normal); URINE KETONE NEGATIVE (NEGATIVE); URINE LEUKOCYTE ESTERASE NEG Leu/uL (Negative); URINE PROTEIN NEGATIVE (NEGATIVE); URINE UROBILINOGEN 0.2-1.0 mg/dL (0.2-1.0); WBC URINE 5 /hpf (0-5)
--- NOTE | 2016-12-20 12:55 | CP.PCM.PN ---
Subjective - Date & Time of Evaluation Date of Evaluation: 12/20/16 Time of Evaluation: 12:40 - Subjective Subjective: tolerating clears Objective - Vital Signs/Intake and Output Vital Signs (last 24 hours): Temp Pulse Resp BP Pulse Ox 98.1 F 52 L 20 161/71 H 97 12/20/16 08:18 12/20/16 10:34 12/20/16 08:18 12/20/16 10:34 12/20/16 10:34 - Medications Medications: Current Medications Amlodipine Besylate (Norvasc) 5 mg PO DAILY [facility] Last Admin: 12/20/16 08:39 Dose: 5 mg Ascorbic Acid (Vitamin C 500 Mg Tab) 1,000 mg PO DAILY [facility] Last Admin: 12/20/16 08:41 Dose: 1,000 mg Aspirin (Ecotrin) 81 mg PO DAILY [facility] Last Admin: 12/20/16 08:38 Dose: 81 mg Atenolol (Tenormin) 50 mg PO DAILY [facility] Last Admin: 12/20/16 08:40 Dose: 50 mg Calcium/Vitamin D (Oyster Shell Calcium/Vitamin D 500 Mg-200 Iu) 1 tab PO BID [facility] Last Admin: 12/20/16 08:40 Dose: 1 tab Enoxaparin Sodium (Lovenox) 40 mg SC DAILY [facility] PRN Reason: Protocol Last Admin: 12/20/16 08:38 Dose: 40 mg Ferrous Sulfate (Feosol) 325 mg PO DAILY [facility] Last Admin: 12/20/16 08:38 Dose: 325 mg Home Med (Cinnamon Bark [Cinnamon]) 1,000 mg PO DAILY [facility] Home Med (Plant Stanol Nanette [Cholest Off]) 450 mg PO DAILY [facility] Hydrochlorothiazide (Microzide) 12.5 mg PO DAILY [facility] Last Admin: 12/20/16 08:39 Dose: 12.5 mg Piperacillin Sod/Tazobactam (Sod 3.375 gm/ Sodium Chloride) 100 mls @ 100 mls/ hr IVPB Q6 [facility] Last Admin: 12/20/16 09:47 Dose: 100 mls/hr Vancomycin HCl 1 gm/ Sodium (Chloride) 250 mls @ 166.667 mls/hr IVPB Q12 [facility] Last Admin: 12/20/16 12:38 Dose: 166.667 mls/hr Morphine Sulfate (Morphine) 4 mg IVP Q6 PRN PRN Reason: Pain, moderate (4-7) Last Admin: 12/19/16 01:42 Dose: 4 mg Ondansetron HCl (Zofran Inj) 4 mg IVP Q4 PRN PRN Reason: Nausea/Vomiting Last Admin: 12/20/16 08:46 Dose: 4 mg Pantoprazole Sodium (Protonix Ec Tab) 40 mg PO BID [facility] Last Admin: 12/20/16 08:40 Dose: 40 mg Pravastatin Sodium (Pravachol) 20 mg PO HS [facility] Last Admin: 12/19/16 21:31 Dose: 20 mg - Labs Labs: 12/20/16 05:45 12/20/16 05:45 PT 11.2 Seconds (9.8-13.1) 12/18/16 16:42 INR 1.1 (0.9-1.2) 12/18/16 16:42 APTT 29.4 Seconds (25.6-37.1) 12/18/16 16:42 - Respiratory Exam Respiratory Exam: NORMAL BREATHING PATTERN - Cardiovascular Exam Cardiovascular Exam: REGULAR RHYTHM - GI/Abdominal Exam GI & Abdominal Exam: Soft, Normal Bowel Sounds Assessment and Plan - Assessment and Plan (Free Text) Assessment: 85 yo female with complicated diverticulitis advance diet per surgery outpt colon in 6-8 weeks
[2016-12-20] MEDS ORDERED: Oxycodone/Acetaminophen 5/325 mg Tab PO PRN (15:13)
[2016-12-20] MEDS: Pravastatin Sodium 20 MG TAB PO SCH (23:25)
[2016-12-21] MEDS: Piperacillin/Tazobact 3.375 GM in Sodium Chloride 0.9% 100 ML IVPB SCH ×4 (04:06→22:23)
[2016-12-21 07:06] LABS: HEMATOCRIT 30.4 % (34.0-47.0); MEAN CELL VOLUME 86.5 fl (81.0-99.0); MEAN CORPUSCULAR HEMOGLOBIN 28.8 pg (27.0-31.0); MEAN CORPUSCULAR HGB CONC 33.3 g/dL (33.0-37.0); RED CELL DISTRIBUTION WIDTH 12.9 % (11.5-14.5)
[2016-12-21 07:20] LABS: CALCIUM 9.4 mg/dL (8.4-10.2); POTASSIUM 3.5 MMOL/L (3.6-5.0)
--- NOTE | 2016-12-21 08:02 | CP.PCM.PN ---
<Edwina Cabrera - Last Filed: 12/21/16 17:04> Subjective - Date & Time of Evaluation Date of Evaluation: 12/21/16 Time of Evaluation: 07:10 - Subjective Subjective: Patient seen and examined at bedside this AM. NAEO. Patient denies any abdominal pain or nausea. Tolerated full liquid diet well Objective - Vital Signs/Intake and Output Vital Signs (last 24 hours): Temp Pulse Resp BP Pulse Ox 98.3 F 56 L 18 154/73 H 95 12/20/16 15:45 12/20/16 15:45 12/20/16 15:45 12/20/16 15:45 12/20/16 15:45 - Medications Medications: Current Medications Acetaminophen (Tylenol 325mg Tab) 650 mg PO Q6 PRN PRN Reason: Pain, moderate (4-7) Amlodipine Besylate (Norvasc) 5 mg PO DAILY [facility] Last Admin: 12/20/16 08:39 Dose: 5 mg Ascorbic Acid (Vitamin C 500 Mg Tab) 1,000 mg PO DAILY [facility] Last Admin: 12/20/16 08:41 Dose: 1,000 mg Aspirin (Ecotrin) 81 mg PO DAILY [facility] Last Admin: 12/20/16 08:38 Dose: 81 mg Atenolol (Tenormin) 50 mg PO DAILY [facility] Last Admin: 12/20/16 08:40 Dose: 50 mg Calcium/Vitamin D (Oyster Shell Calcium/Vitamin D 500 Mg-200 Iu) 1 tab PO BID [facility] Last Admin: 12/20/16 16:45 Dose: 1 tab Enoxaparin Sodium (Lovenox) 40 mg SC DAILY [facility] PRN Reason: Protocol Last Admin: 12/20/16 08:38 Dose: 40 mg Ferrous Sulfate (Feosol) 325 mg PO DAILY [facility] Last Admin: 12/20/16 08:38 Dose: 325 mg Home Med (Cinnamon Bark [Cinnamon]) 1,000 mg PO DAILY [facility] Home Med (Plant Stanol Nanette [Cholest Off]) 450 mg PO DAILY [facility] Hydrochlorothiazide (Microzide) 12.5 mg PO DAILY [facility] Last Admin: 12/20/16 08:39 Dose: 12.5 mg Piperacillin Sod/Tazobactam (Sod 3.375 gm/ Sodium Chloride) 100 mls @ 100 mls/ hr IVPB Q6 [facility] Last Admin: 12/21/16 04:06 Dose: 100 mls/hr Vancomycin HCl 1 gm/ Sodium (Chloride) 250 mls @ 166.667 mls/hr IVPB Q12 [facility] Last Admin: 12/20/16 20:48 Dose: 166.667 mls/hr Ondansetron HCl (Zofran Inj) 4 mg IVP Q4 PRN PRN Reason: Nausea/Vomiting Last Admin: 12/20/16 08:46 Dose: 4 mg Pantoprazole Sodium (Protonix Ec Tab) 40 mg PO BID [facility] Last Admin: 12/20/16 16:46 Dose: 40 mg Pravastatin Sodium (Pravachol) 20 mg PO HS [facility] Last Admin: 12/20/16 23:25 Dose: 20 mg - Labs Labs: 12/21/16 06:30 12/21/16 06:30 PT 11.2 Seconds (9.8-13.1) 12/18/16 16:42 INR 1.1 (0.9-1.2) 12/18/16 16:42 APTT 29.4 Seconds (25.6-37.1) 12/18/16 16:42 - Constitutional Appears: Non-toxic, No Acute Distress - Head Exam Head Exam: ATRAUMATIC, NORMOCEPHALIC - Eye Exam Eye Exam: Normal appearance. absent: Conjunctival injection, Scleral icterus - ENT Exam ENT Exam: Mucous Membranes Moist, Normal Oropharynx - Respiratory Exam Respiratory Exam: NORMAL BREATHING PATTERN. absent: Accessory Muscle Use, Respiratory Distress - Cardiovascular Exam Cardiovascular Exam: RRR - GI/Abdominal Exam GI & Abdominal Exam: Soft. absent: Distended, Tenderness - Extremities Exam Extremities Exam: absent: Calf Tenderness, Pedal Edema, Tenderness - Neurological Exam Neurological Exam: Alert, Awake, Oriented x3 - Psychiatric Exam Psychiatric exam: Normal Affect, Normal Mood - Skin Skin Exam: Dry, Intact, Normal Color, Warm Assessment and Plan - Assessment and Plan (Free Text) Assessment: 85F with acute diverticulitis with possible microperf on CT clinically improving tolerated FLD Plan: -No surgical intervention at this time -Advance diet to soft, low fiber diet today -Serial abdominal exams -Encourage ambulation -Continue antibiotics -Continue medical management per primary team Further recs per Dr. Arturo Cabrera, PGY2 <Ankush Morris B - Last Filed: 12/21/16 19:02> Objective - Vital Signs/Intake and Output Vital Signs (last 24 hours): Temp Pulse Resp BP Pulse Ox 98.2 F 62 19 180/80 H 95 12/21/16 15:47 12/21/16 17:15 12/21/16 15:47 12/21/16 17:15 12/21/16 15:47 - Medications Medications: Current Medications Acetaminophen (Tylenol 325mg Tab) 650 mg PO Q6 PRN PRN Reason: Pain, moderate (4-7) Amlodipine Besylate (Norvasc) 5 mg PO DAILY [facility] Last Admin: 12/21/16 12:42 Dose: 5 mg Ascorbic Acid (Vitamin C 500 Mg Tab) 1,000 mg PO DAILY [facility] Last Admin: 12/21/16 12:44 Dose: 1,000 mg Aspirin (Ecotrin) 81 mg PO DAILY [facility] Last Admin: 12/21/16 12:42 Dose: 81 mg Atenolol (Tenormin) 50 mg PO DAILY [facility] Last Admin: 12/21/16 12:43 Dose: 50 mg Calcium/Vitamin D (Oyster Shell Calcium/Vitamin D 500 Mg-200 Iu) 1 tab PO BID [facility] Last Admin: 12/21/16 17:10 Dose: 1 tab Docusate Sodium/Ferrous Fumarate (Mona-Sequels 100 Mg -150 Mg) 1 tab PO DAILY [facility] Enoxaparin Sodium (Lovenox) 40 mg SC DAILY [facility] PRN Reason: Protocol Last Admin: 12/21/16 09:50 Dose: 40 mg Home Med (Cinnamon Bark [Cinnamon]) 1,000 mg PO DAILY [facility] Home Med (Plant Stanol Nanette [Cholest Off]) 450 mg PO DAILY [facility] Hydrochlorothiazide (Microzide) 12.5 mg PO DAILY [facility] Last Admin: 12/21/16 12:42 Dose: 12.5 mg Piperacillin Sod/Tazobactam (Sod 3.375 gm/ Sodium Chloride) 100 mls @ 100 mls/ hr IVPB Q6 [facility] Last Admin: 12/21/16 17:34 Dose: 100 mls/hr Vancomycin HCl 1 gm/ Sodium (Chloride) 250 mls @ 166.667 mls/hr IVPB Q12 [facility] Last Admin: 12/21/16 08:41 Dose: 166.667 mls/hr Ondansetron HCl (Zofran Inj) 4 mg IVP Q4 PRN PRN Reason: Nausea/Vomiting Last Admin: 12/21/16 17:09 Dose: 4 mg Pantoprazole Sodium (Protonix Ec Tab) 40 mg PO BID [facility] Last Admin: 12/21/16 17:10 Dose: 40 mg Pravastatin Sodium (Pravachol) 20 mg PO HS [facility] Last Admin: 12/20/16 23:25 Dose: 20 mg - Labs Labs: 12/21/16 06:30 12/21/16 06:30 PT 11.2 Seconds (9.8-13.1) 12/18/16 16:42 INR 1.1 (0.9-1.2) 12/18/16 16:42 APTT 29.4 Seconds (25.6-37.1) 12/18/16 16:42 Attending/Attestation - Attestation I have personally seen and examined this patient.: Yes I have fully participated in the care of the patient.: Yes I have reviewed all pertinent clinical information, including history, physical exam and plan: Yes Notes (Text): 12/21/16 19:00 Pt was seen and examined at bedside Agree with above note and assessment Pt with Diverticulitis with microperforation Has nausea and vomiting after breakfast No BM or Gas c.w liquid diet c.w IV antibiotic serial abdominal exam Plan d.w pt in detail
[2016-12-21] MEDS ORDERED: Potassium Chloride 20 mEq ER Tab PO ONE (08:30)
[2016-12-21] MEDS: Pantoprazole 40 mg EC Tab PO SCH ×2 (09:49→17:10)
[2016-12-21] MEDS: Enoxaparin 40 mg Syringe SC SCH (09:50)
[2016-12-21] MEDS: Calcium-Vit D 500 mg-200 Units Tab UD PO SCH ×2 (12:43→17:10)
--- NOTE | 2016-12-21 12:44 | PN ---
DATE: 12/21/2016 SUBJECTIVE: The patient is seen and examined. Interim events noted. Consults noted appreciated; Surgery and Gastroenterology, and interventions noted and appreciated. The patient remains on regular medical floor. The patient states that she had an episode of vomiting after taking Percocet; also passing gas, but no stool. The patient had some semisolid food yesterday and tolerated well. No chest pain or shortness of breath. Abdominal pain is improving. PHYSICAL EXAMINATION: GENERAL: The patient is in no acute distress. VITAL SIGNS: Stable. HEART: S1 and S2 normal, regular. LUNGS: Good bilateral air exchange. ABDOMEN: Soft and nontender. No organomegaly. No fluids. Bowel sounds are present. No sign of acute abdomen. No guarding, no rigidity, no rebound. EXTREMITIES: No edema. No calf swelling. No tenderness. No acute ischemia. CENTRAL NERVOUS SYSTEM: Essentially unchanged. DIAGNOSTIC DATA: Available diagnostic data reviewed. ASSESSMENT: Overall, the patient is slowly improving. PLAN: As ordered. Case and plan discussed with the patient. Merritt Field MD
--- NOTE | 2016-12-21 13:11 | CP.PCM.CON ---
History of Present Illness - History of Present Illness History of Present Illness: ID CONSULTED FOR POSITIVE BLOOD CULTURES THIS IS AN 85yo F admitted here for evaluation of constipation and abdominal discomfort. She was recently started on Plaquenil about 3 weeks ago and since then, she noted intermittent constipation and diarrhea. On 12/09, she went to [facility] for evaluation of a few episodes of Nausea, vomiting and Diarrhea (non bloody, and was discharged home after some fluids and magnesium. She states that for the past 3 days, she has had worsening abdominal pain, located in the LLQ, described as sharp in quality. Denies any remitting factors. She reports that she was diagnosed with acute uncomplicated diverticulitis about 3-4 years ago, treated with outpatient antibiotics. Now again being treated for diverticulitis has positive blood cultures - bacillus species PMHx: HTN, HLD, Osteoarthritis, Polymyalgia Rheumatica PSHx: Bilateral Cataracts; Bilateral breast biopsies (benign bx), C.Section x4, L Arm ORIF for comminuted Fx Family Hx: Breast CA in 3 of her Sisters Social Hx: Denies Tob, Denies ETOH, Denies illicit drugs. Lives alone. Closest daughter lives in [place]. Allergy: Iodine ("upset stomach") Review of Systems - Constitutional Constitutional: As Per HPI - EENT Eyes: absent: As Per HPI, Blind Spots, Blurred Vision, Change in Vision, Decreased Night Vision, Diplopia, Discharge, Dry Eye, Exophthalmos, Floaters, Irritation, Itchy Eyes, Loss of Peripheral Vision, Pain, Photophobia, Requires Corrective Lenses, Sees Flashes, Spots in Vision, Tunnel Vision, Other Visual Disturbances, Loss of Vision, Other Ears: absent: As Per HPI, Decreased Hearing, Ear Discharge, Ear Pain, Tinnitus, Abnormal Hearing, Disequilibrium, Dizziness, Other Nose/Mouth/Throat: absent: As Per HPI, Epistaxis, Nasal Congestion, Nasal Discharge, Nasal Obstruction, Nasal Trauma, Nose Pain, Post Nasal Drip, Sinus Pain, Sinus Pressure, Bleeding Gums, Change in Voice, Dental Pain, Dry Mouth, Dysphagia, Halitosis, Hoarsness, Lip Swelling, Mouth Lesions, Mouth Pain, Odynophagia, Sore Throat, Throat Swelling, Tongue Swelling, Facial Pain, Neck Pain, Neck Mass, Other - Breasts Breasts: absent: As Per HPI, Change in Shape, Mass, Pain, Nipple Discharge, Nipple Inversion, Skin Changes, Swelling, Other - Cardiovascular Cardiovascular: absent: As Per HPI, Acrocyanosis, Chest Pain, Chest Pain at Rest , Chest Pain with Activity, Claudication, Diaphoresis, Dyspnea, Dyspnea on Exertion, Edema, Irregular Heart Rhythm, Pain Radiating to Arm/Neck/Jaw, Leg Edema, Leg Ulcers, Lightheadedness, Orthopnea, Palpitations, Paroxysmal Nocturnal Dyspnea, Pedal Edema, Radiating Pain, Rapid Heart Rate, Slow Heart Rate, Syncope, Other - Respiratory Respiratory: absent: As Per HPI, Cough, Dyspnea, Hemoptysis, Dyspnea on Exertion , Wheezing, Snoring, Stridor, Pain on Inspiration, Chest Congestion, Excessive Mucous Production, Change in Mucous Color, Pain with Coughing, Other - Gastrointestinal Gastrointestinal: As Per HPI - Genitourinary Genitourinary: absent: As Per HPI, Change in Urinary Stream, Difficulty Urinating, Dysuria, Flank Pain, Hematuria, Pyuria, Nocturia, Urinary Incontinence, Urinary Frequency, Urinary Hesitance, Urinary Urgency, Voiding Freq/Small Amts, Freq UTI, Hx Renal/Bladder Calculi, Hx /Renal Surgery, Bladder Distension, Other - Reproductive: Female Reproductive:Female: absent: As Per HPI, Amenorrhea, Amenorrhea/ Control, Currently Menstual, Cycle <21 Days, Cycle >35 Days, Cycle Variable, Menses 1-7 Days, Menses >/= 8 Days, Menses Variable, Cycle > 4 Weeks Between, No Menses for 6 Months, Heavy Menses, Light Menses, Normal Menses, Spotting Between Cycles , S/P Hysterectomy, Menopausal, Post Menopausal, Premenarche, Abnormal Vaginal Bleeding, Dysmenorrhea, Dyspareunia, Genital Lesions, Genital Pruritis, Pelvic Pain, Prolapse Symptoms, Sexual Dysfunction, Vaginal Discharge, Vaginal Dryness , Vaginal Odor, Vaginal Pruritis, Other - Menstruation Menstruation: absent: As Per HPI, Amenorrhea, Amenorrhea/ Control, Currently Menstual, Cycle <21 Days, Cycle >35 Days, Cycle Variable, Menses 1-7 Days, Menses >/= 8 Days, Menses Variable, Cycle > 4 Weeks Between, No Menses for 6 Months, Heavy Menses, Light Menses, Normal Menses, Spotting Between Cycles , S/P Hysterectomy, Menopausal, Post Menopausal, Premenarche, Abnormal Vaginal Bleeding, Dysmenorrhea, Other - Musculoskeletal Musculoskeletal: absent: As Per HPI, Abnormal Gait, Arthralgias, Atrophy, Back Pain, Deformity, Joint Swelling, Limited Range of Motion, Loss of Height, Muscle Cramps, Muscle Weakness, Myalgias, Neck Pain, Numbness, Radiating Pain into Limb, Stiffness, Tingling, Other - Integumentary Integumentary: absent: As Per HPI, Acne, Alopecia, Bleeding Lesions, Change in Hair, Change in Nails, Change in Pigmentation, Changing Lesions, Dry Skin, Erythema, Furuncle, Hirsutism, Lesions, New Lesions, Non-Healing Lesions, Photosensitivity, Pruritus, Rash, Skin Pain, Skin Ulcer, Sores, Striae, Swelling , Unusual Bruising, Wounds, Jaundice, Other - Neurological Neurological: absent: As Per HPI, Abnormal Gait, Abnormal Hearing, Abnormal Movements, Abnormal Speech, Behavioral Changes, Burning Sensations, Confusion, Convulsions, Disequilibrium, Dizziness, Numbness, Focal Weakness, Frequent Falls , Headaches, Lack of Coordination, Loss of Vision, Memory Loss, Paresthesias, Radicular Pain, Restless Legs, Sensory Deficit, Syncope, Tingling, Tremor, Vertigo, Weakness, Other Visual Disturbances, Other - Psychiatric Psychiatric: absent: As Per HPI, Abnormal Sleep Pattern, Anhedonia, Anxiety, Auditory Hallucinations, Behavioral Changes, Change in Appetite, Change in Libido, Confusion, Depression, Difficulty Concentrating, Hallucinations, Homicidal Ideation, Hopelessness, Irritability, Memory Loss, Mood Swings, Panic Attacks, Paranoia, Suicidal Ideation, Visual Hallucinations, Tactile Hallucinations, Other - Endocrine Endocrine: absent: As Per HPI, Change in Body Appearance, Change in Libido, Cold Intolorance, Deepening of Voice, Excessive Sweating, Fatigue, Flushing, Heat Intolorance, Increase in Ring/Shoe/Hat Size, Palpitations, Polydipsia, Polyphagia, Polyuria, Other - Hematologic/Lymphatic Hematologic: absent: As Per HPI, Easy Bleeding, Easy Bruising, Lymphadenopathy, Other Past Patient History - Infectious Disease Hx of Infectious Diseases: None - Past Medical History & Family History Past Medical History?: Yes - Past Social History Smoking Status: Never Smoked - CARDIAC Hx Cardiac Disorders: Yes - PULMONARY Hx Respiratory Disorders: No - NEUROLOGICAL Hx Neurological Disorder: No - HEENT Hx HEENT Problems: Yes - RENAL Hx Chronic Kidney Disease: No - ENDOCRINE/METABOLIC Hx Endocrine Disorders: No - HEMATOLOGICAL/ONCOLOGICAL Hx Blood Disorders: No - INTEGUMENTARY Hx Dermatological Problems: No - MUSCULOSKELETAL/RHEUMATOLOGICAL Hx Musculoskeletal Disorders: Yes - GASTROINTESTINAL Hx Gastrointestinal Disorders: No - GENITOURINARY/GYNECOLOGICAL Hx Genitourinary Disorders: No - PSYCHIATRIC Hx Psychophysiologic Disorder: No - SURGICAL HISTORY Hx Cataract Extraction: Yes (bilateral eyes) Hx Section: Yes (x4) Hx Open Reduction Internal Fixation: Yes (Left arm) Other/Comment: Left arm surgery, bilateral breast biospsies. - ANESTHESIA Hx Anesthesia: Yes Hx Anesthesia Reactions: No Meds Allergies/Adverse Reactions: Allergies Allergy/AdvReac Type Severity Reaction Status Date / Time iodine AdvReac VOMITING Verified 12/18/16 15:52 - Medications Medications: Current Medications Acetaminophen (Tylenol 325mg Tab) 650 mg PO Q6 PRN PRN Reason: Pain, moderate (4-7) Amlodipine Besylate (Norvasc) 5 mg PO DAILY [facility] Last Admin: 12/21/16 12:42 Dose: 5 mg Ascorbic Acid (Vitamin C 500 Mg Tab) 1,000 mg PO DAILY [facility] Last Admin: 12/21/16 12:44 Dose: 1,000 mg Aspirin (Ecotrin) 81 mg PO DAILY [facility] Last Admin: 12/21/16 12:42 Dose: 81 mg Atenolol (Tenormin) 50 mg PO DAILY [facility] Last Admin: 12/21/16 12:43 Dose: 50 mg Calcium/Vitamin D (Oyster Shell Calcium/Vitamin D 500 Mg-200 Iu) 1 tab PO BID [facility] Last Admin: 12/21/16 12:43 Dose: 1 tab Docusate Sodium/Ferrous Fumarate (Mona-Sequels 100 Mg -150 Mg) 1 tab PO DAILY [facility] Enoxaparin Sodium (Lovenox) 40 mg SC DAILY [facility] PRN Reason: Protocol Last Admin: 12/21/16 09:50 Dose: 40 mg Home Med (Cinnamon Bark [Cinnamon]) 1,000 mg PO DAILY [facility] Home Med (Plant Stanol Nanette [Cholest Off]) 450 mg PO DAILY [facility] Hydrochlorothiazide (Microzide) 12.5 mg PO DAILY [facility] Last Admin: 12/21/16 12:42 Dose: 12.5 mg Piperacillin Sod/Tazobactam (Sod 3.375 gm/ Sodium Chloride) 100 mls @ 100 mls/ hr IVPB Q6 [facility] Last Admin: 12/21/16 12:44 Dose: 100 mls/hr Vancomycin HCl 1 gm/ Sodium (Chloride) 250 mls @ 166.667 mls/hr IVPB Q12 [facility] Last Admin: 12/21/16 08:41 Dose: 166.667 mls/hr Ondansetron HCl (Zofran Inj) 4 mg IVP Q4 PRN PRN Reason: Nausea/Vomiting Last Admin: 12/21/16 08:36 Dose: 4 mg Pantoprazole Sodium (Protonix Ec Tab) 40 mg PO BID [facility] Last Admin: 12/21/16 09:49 Dose: 40 mg Pravastatin Sodium (Pravachol) 20 mg PO HS [facility] Last Admin: 12/20/16 23:25 Dose: 20 mg Physical Exam - Constitutional Appears: Non-toxic, Chronically Ill - Head Exam Head Exam: NORMOCEPHALIC - Eye Exam Eye Exam: PERRL. absent: Scleral icterus - ENT Exam ENT Exam: Mucous Membranes Dry, Normal External Ear Exam - Neck Exam Neck exam: Negative for: Lymphadenopathy - Respiratory Exam Respiratory Exam: Decreased Breath Sounds, Clear to Auscultation Bilateral - Cardiovascular Exam Cardiovascular Exam: REGULAR RHYTHM, +S1, +S2 - GI/Abdominal Exam GI & Abdominal Exam: Diminished Bowel Sounds, Distended, Guarding, Soft, Tenderness. absent: Rebound, Rigid - Rectal Exam Rectal Exam: Deferred - Exam Exam: NORMAL INSPECTION - Extremities Exam Extremities exam: Positive for: pedal pulses present. Negative for: calf tenderness, pedal edema, tenderness - Back Exam Back exam: absent: CVA tenderness (L), CVA tenderness (R) - Neurological Exam Neurological exam: Alert, CN II-XII Intact, Oriented x3, Reflexes Normal - Psychiatric Exam Psychiatric exam: Normal Mood - Skin Skin Exam: Dry, Intact Results - Vital Signs Recent Vital Signs: Last Vital Signs Temp 97.8 F 12/21/16 10:47 Pulse 72 12/21/16 12:43 Resp 20 12/21/16 10:47 BP 166/72 H 12/21/16 12:43 Pulse Ox 93 L 12/21/16 10:47 - Labs Result Diagrams: 12/21/16 06:30 12/21/16 06:30 Labs: Laboratory Results - last 24 hr 12/21/16 12/21/16 06:30 06:30 WBC 8.0 RBC 3.52 L Hgb 10.1 L Hct 30.4 L MCV 86.5 MCH 28.8 MCHC 33.3 RDW 12.9 Plt Count 352 Sodium 139 Potassium 3.5 L Chloride 102 Carbon Dioxide 28 Anion Gap 13 BUN 7 Creatinine 1.1 Est GFR ( Amer) 57 Est GFR (Non-Af Amer) 47 Random Glucose 106 H Calcium 9.4 Assessment & Plan (1) Diverticulitis Status: Acute - Assessment and Plan (Free Text) Assessment: bacillus species on blood cultures- possible contaminant repeat c/s pending cont zosyn for at least 7 days will need follow up imaging and colonoscopy
[2016-12-21 15:47] VITALS: RESP 19; TEMP 98.2; O2SAT 95
[2016-12-21] MEDS: Pravastatin Sodium 20 MG TAB PO SCH (21:12)
[2016-12-21 22:48] VITALS: BP 160/68; PULSE 60
[2016-12-22] MEDS ORDERED: Docusate Sodium/Ferrous Fumara 1 TAB PO SCH (09:00)
== END 2016-12-21 22:49 | DRG 392 ==
LOC: H.ER 15:25 → H.EROBSV 15:56 → H.ERHOLD 23:06 → OBSVTOIN 23:06 → H.MEDSURG1 12-19 01:10
PROVIDERS: ADMIT Internal Medicine; ATTEND Internal Medicine
DX: K57.92 Diverticulitis of intestine, part unspecified, without perforation or abscess without bleeding (principal); N17.9 Acute kidney failure, unspecified; D64.9 Anemia, unspecified; I10 Essential (primary) hypertension; E78.5 Hyperlipidemia, unspecified; Z80.3 Family history of malignant neoplasm of breast; D72.829 Elevated white blood cell count, unspecified; E78.00 Pure hypercholesterolemia, unspecified; K59.00 Constipation, unspecified; M35.3 Polymyalgia rheumatica; Z79.82 Long term (current) use of aspirin; Z79.899 Other long term (current) drug therapy

== ENCOUNTER 2016-12-21 23:26 | Inpatient (IN) | payer OTHER, MEDICARE ==
[2016-12-21 23:33] VITALS: BMI 21.3
[2016-12-22] MEDS ORDERED: Tuberculin 5 Units/0.1 ml Inj ID ONE ×2 (00:01→09:00)
[2016-12-22] MEDS ORDERED: Patient's Own Med (Piperacill/Tazo 3.375gm In Dex [Zosyn 3.375 Gm Iv] 3.375 GM) IVPB SCH (04:00)
[2016-12-22] MEDS: Piperacillin/Tazobact 3.375 GM IV Q6H IVPB SCH ×4 (04:00→21:27)
[2016-12-22 06:10] LABS: ALB/GLOB RATIO 1.3 (1.0-2.1); ALKALINE PHOSPHATASE 53 U/L (38-126); ALT/SGPT 24 U/L (9-52); AST/SGOT 21 U/L (14-36); BILIRUBIN,TOTAL 0.7 mg/dl (0.2-1.3); BLOOD UREA NITROGEN 9 mg/dl (7-17); CALCIUM 9.2 mg/dL (8.4-10.2); CARBON DIOXIDE 24 mmol/L (22-30); CHLORIDE 103 mmol/L (98-107); GFR AFRICAN-AMERICAN > 60; GLUCOSE,RANDOM 89 mg/dL (65-105); POTASSIUM 3.9 MMOL/L (3.6-5.0); SODIUM 138 mmol/l (132-148); TOTAL PROTEIN 6.2 G/DL (6.3-8.2)
[2016-12-22 06:40] LABS: HEMATOCRIT 28.4 % (34.0-47.0); MEAN CORPUSCULAR HEMOGLOBIN 28.7 pg (27.0-31.0); RED CELL DISTRIBUTION WIDTH 12.8 % (11.5-14.5); WHITE BLOOD COUNT 6.4 K/uL (4.8-10.8)
[2016-12-22] MEDS ORDERED: CALCIUM CARBONATE PO SCH (09:00)
[2016-12-22] MEDS ORDERED: VITAMIN D3 PO SCH (09:00)
[2016-12-22] MEDS ORDERED: [UNRECOGNIZED DRUG - REMARK] PO SCH (09:00)
[2016-12-22] MEDS: Calcium-Vit D 500 mg-200 Units Tab UD PO SCH ×2 (09:55→17:09)
[2016-12-22] MEDS: Pantoprazole 40 mg EC Tab PO SCH ×2 (09:56→17:09)
--- NOTE | 2016-12-22 11:46 | PN ---
DATE: CHIEF COMPLAINT: The patient was transferred from medical floor for complaints of acute diverticulitis. HISTORY OF PRESENT ILLNESS: The patient is an 85-year-old female with hypertension, elevated cholesterol, and osteoarthritis, who was admitted to the medical floor with acute diverticulitis and septicemia for which the patient was treated with IV antibiotics, was stabilized and was transferred to transitional care unit for completion of therapy. Currently, the patient with no specific complaint of chest pain, shortness of breath or abdominal pain. The patient does complain of constipation. REVIEW OF SYSTEMS: Positive for constipation and abdominal pain, angina like symptoms. Review of systems otherwise is negative for headache, dizziness, syncope, loss of consciousness, chest pain, shortness of breath, nausea, vomiting, diarrhea, any joint or extremity pain. Review of systems of all other 10 system is unremarkable. PAST MEDICAL HISTORY: Significant for hypertension, elevated cholesterol, and osteoarthritis. PAST SURGICAL HISTORY: Unremarkable. PERSONAL HISTORY: The patient is currently nonsmoker, nondrinker, and no substance abuse. MEDICATIONS: The patient is on multiple medications; medication reconciliation reviewed and ordered. FAMILY HISTORY: Noncontributory. PHYSICAL EXAMINATION: GENERAL: Well nourished elderly female in no acute distress. VITAL SIGNS: Temperature afebrile, pulse 78, respirations 18, blood pressure 136/76. HEENT: Pupils reactive to light. NECK: No JVD. No thyromegaly. No lymphadenopathy. No nystagmus. Normocephalic and atraumatic. HEART: S1 and S2 normal, regular. No significant murmur, gallop or rub is heard. LUNGS: Shows good bilateral air exchange. No rales or rhonchi. ABDOMEN: Soft, nontender. No organomegaly. No fluid. Bowel sounds are present. No sign of acute abdomen. No guarding, no rigidity, no rebound. EXTREMITIES: No edema. No calf swelling. No tenderness. No acute ischemia. CENTRAL NERVOUS SYSTEM: The patient is alert, awake, and oriented x3. There is no sign of any acute gross focal motor or sensory neurological deficits. LABORATORY DATA: Available diagnostic data reviewed. CBC and CMP is acceptable. ADMITTING IMPRESSION: Acute diverticulitis, hypertension, elevated cholesterol, and osteoarthritis. PLAN: As ordered. Care and plan discussed with the patient. Merritt Field MD [facility] # [id number]
[2016-12-22] MEDS: Docusate Sodium/Ferrous Fumara 1 TAB PO SCH (12:17)
[2016-12-22] MEDS: Enoxaparin 40 mg Syringe SC SCH (12:18)
[2016-12-22] MEDS ORDERED: Magnesium Hydroxide Susp 30 ml UD PO PRN (15:56)
[2016-12-22] MEDS: Pravastatin Sodium 20 MG TAB PO SCH (21:29)
[2016-12-22] MEDS ORDERED: Patient's Own Med (Lovastatin [Lovastatin] 20 mg) PO SCH (22:00)
[2016-12-23] MEDS: Piperacillin/Tazobact 3.375 GM IV Q6H IVPB SCH ×4 (04:15→21:30)
--- NOTE | 2016-12-23 09:08 | PN ---
DATE: 12/23/2016 SUBJECTIVE: The patient seen and examined. No interim events noted. The patient remains in transition care unit and IV antibiotic. The patient finally was able to move her bowels. She did have some crampy abdominal pain. That is much better now. No chest pain or shortness of breath. PHYSICAL EXAMINATION GENERAL: The patient is in no acute distress. VITAL SIGNS: Stable. HEART: S1 and S2 normal. LUNGS: Good bilateral air exchange. ABDOMEN: Soft and nontender, EXTREMITIES: No edema. No calves swelling. No tenderness. No acute ischemia. CENTRAL NERVOUS SYSTEMS: Essentially unchanged. DIAGNOSTIC DATA: Available diagnostic data reviewed. IMPRESSION: Overall, the patient is slowly improving, colitis is getting better and constipation is resolved. PLAN: As ordered. Merritt Field MD
[2016-12-23] MEDS: Pantoprazole 40 mg EC Tab PO SCH ×2 (09:42→17:06)
[2016-12-23] MEDS: Enoxaparin 40 mg Syringe SC SCH (09:42)
[2016-12-23] MEDS: Docusate Sodium/Ferrous Fumara 1 TAB PO SCH (09:42)
[2016-12-23] MEDS: Calcium-Vit D 500 mg-200 Units Tab UD PO SCH ×2 (09:42→17:06)
--- NOTE | 2016-12-23 12:38 | CP.PCM.CON ---
History of Present Illness - History of Present Illness History of Present Illness: admitted to TCU for diverticultis On IV antibiotics intollerance for quinolones as per pt c/o diarrhea GI following Review of Systems - Review of Systems All systems: reviewed and no additional remarkable complaints except - Constitutional Constitutional: As Per HPI - EENT Eyes: absent: As Per HPI, Blind Spots, Blurred Vision, Change in Vision, Decreased Night Vision, Diplopia, Discharge, Dry Eye, Exophthalmos, Floaters, Irritation, Itchy Eyes, Loss of Peripheral Vision, Pain, Photophobia, Requires Corrective Lenses, Sees Flashes, Spots in Vision, Tunnel Vision, Other Visual Disturbances, Loss of Vision, Other Ears: absent: As Per HPI, Decreased Hearing, Ear Discharge, Ear Pain, Tinnitus, Abnormal Hearing, Disequilibrium, Dizziness, Other Nose/Mouth/Throat: absent: As Per HPI, Epistaxis, Nasal Congestion, Nasal Discharge, Nasal Obstruction, Nasal Trauma, Nose Pain, Post Nasal Drip, Sinus Pain, Sinus Pressure, Bleeding Gums, Change in Voice, Dental Pain, Dry Mouth, Dysphagia, Halitosis, Hoarsness, Lip Swelling, Mouth Lesions, Mouth Pain, Odynophagia, Sore Throat, Throat Swelling, Tongue Swelling, Facial Pain, Neck Pain, Neck Mass, Other - Breasts Breasts: absent: As Per HPI, Change in Shape, Mass, Pain, Nipple Discharge, Nipple Inversion, Skin Changes, Swelling, Other - Cardiovascular Cardiovascular: absent: As Per HPI, Acrocyanosis, Chest Pain, Chest Pain at Rest , Chest Pain with Activity, Claudication, Diaphoresis, Dyspnea, Dyspnea on Exertion, Edema, Irregular Heart Rhythm, Pain Radiating to Arm/Neck/Jaw, Leg Edema, Leg Ulcers, Lightheadedness, Orthopnea, Palpitations, Paroxysmal Nocturnal Dyspnea, Pedal Edema, Radiating Pain, Rapid Heart Rate, Slow Heart Rate, Syncope, Other - Respiratory Respiratory: absent: As Per HPI, Cough, Dyspnea, Hemoptysis, Dyspnea on Exertion , Wheezing, Snoring, Stridor, Pain on Inspiration, Chest Congestion, Excessive Mucous Production, Change in Mucous Color, Pain with Coughing, Other - Gastrointestinal Gastrointestinal: As Per HPI - Genitourinary Genitourinary: absent: As Per HPI, Change in Urinary Stream, Difficulty Urinating, Dysuria, Flank Pain, Hematuria, Pyuria, Nocturia, Urinary Incontinence, Urinary Frequency, Urinary Hesitance, Urinary Urgency, Voiding Freq/Small Amts, Freq UTI, Hx Renal/Bladder Calculi, Hx /Renal Surgery, Bladder Distension, Other - Reproductive: Female Reproductive:Female: absent: As Per HPI, Amenorrhea, Amenorrhea/ Control, Currently Menstual, Cycle <21 Days, Cycle >35 Days, Cycle Variable, Menses 1-7 Days, Menses >/= 8 Days, Menses Variable, Cycle > 4 Weeks Between, No Menses for 6 Months, Heavy Menses, Light Menses, Normal Menses, Spotting Between Cycles , S/P Hysterectomy, Menopausal, Post Menopausal, Premenarche, Abnormal Vaginal Bleeding, Dysmenorrhea, Dyspareunia, Genital Lesions, Genital Pruritis, Pelvic Pain, Prolapse Symptoms, Sexual Dysfunction, Vaginal Discharge, Vaginal Dryness , Vaginal Odor, Vaginal Pruritis, Other - Menstruation Menstruation: absent: As Per HPI, Amenorrhea, Amenorrhea/ Control, Currently Menstual, Cycle <21 Days, Cycle >35 Days, Cycle Variable, Menses 1-7 Days, Menses >/= 8 Days, Menses Variable, Cycle > 4 Weeks Between, No Menses for 6 Months, Heavy Menses, Light Menses, Normal Menses, Spotting Between Cycles , S/P Hysterectomy, Menopausal, Post Menopausal, Premenarche, Abnormal Vaginal Bleeding, Dysmenorrhea, Other - Musculoskeletal Musculoskeletal: absent: As Per HPI, Abnormal Gait, Arthralgias, Atrophy, Back Pain, Deformity, Joint Swelling, Limited Range of Motion, Loss of Height, Muscle Cramps, Muscle Weakness, Myalgias, Neck Pain, Numbness, Radiating Pain into Limb, Stiffness, Tingling, Other - Integumentary Integumentary: absent: As Per HPI, Acne, Alopecia, Bleeding Lesions, Change in Hair, Change in Nails, Change in Pigmentation, Changing Lesions, Dry Skin, Erythema, Furuncle, Hirsutism, Lesions, New Lesions, Non-Healing Lesions, Photosensitivity, Pruritus, Rash, Skin Pain, Skin Ulcer, Sores, Striae, Swelling , Unusual Bruising, Wounds, Jaundice, Other - Neurological Neurological: absent: As Per HPI, Abnormal Gait, Abnormal Hearing, Abnormal Movements, Abnormal Speech, Behavioral Changes, Burning Sensations, Confusion, Convulsions, Disequilibrium, Dizziness, Numbness, Focal Weakness, Frequent Falls , Headaches, Lack of Coordination, Loss of Vision, Memory Loss, Paresthesias, Radicular Pain, Restless Legs, Sensory Deficit, Syncope, Tingling, Tremor, Vertigo, Weakness, Other Visual Disturbances, Other - Psychiatric Psychiatric: absent: As Per HPI, Abnormal Sleep Pattern, Anhedonia, Anxiety, Auditory Hallucinations, Behavioral Changes, Change in Appetite, Change in Libido, Confusion, Depression, Difficulty Concentrating, Hallucinations, Homicidal Ideation, Hopelessness, Irritability, Memory Loss, Mood Swings, Panic Attacks, Paranoia, Suicidal Ideation, Visual Hallucinations, Tactile Hallucinations, Other - Endocrine Endocrine: absent: As Per HPI, Change in Body Appearance, Change in Libido, Cold Intolorance, Deepening of Voice, Excessive Sweating, Fatigue, Flushing, Heat Intolorance, Increase in Ring/Shoe/Hat Size, Palpitations, Polydipsia, Polyphagia, Polyuria, Other - Hematologic/Lymphatic Hematologic: absent: As Per HPI, Easy Bleeding, Easy Bruising, Lymphadenopathy, Other Past Patient History - Infectious Disease Hx of Infectious Diseases: None - Past Medical History & Family History Past Medical History?: Yes - Past Social History Smoking Status: Never Smoked - CARDIAC Hx Cardiac Disorders: Yes Hx Hypercholesterolemia: Yes Hx Hypertension: Yes - PULMONARY Hx Respiratory Disorders: No - NEUROLOGICAL Hx Neurological Disorder: No - HEENT Hx HEENT Problems: Yes Hx Cataracts: Yes - RENAL Hx Chronic Kidney Disease: No - ENDOCRINE/METABOLIC Hx Endocrine Disorders: No - HEMATOLOGICAL/ONCOLOGICAL Hx Blood Disorders: No Hx AIDS: No Hx Human Immunodeficiency Virus (HIV): No - INTEGUMENTARY Hx Dermatological Problems: No - MUSCULOSKELETAL/RHEUMATOLOGICAL Hx Musculoskeletal Disorders: Yes Hx Arthritis: Yes Hx Falls: No Hx Osteoarthritis: Yes Other/Comment: hx compression fx back - GASTROINTESTINAL Hx Gastrointestinal Disorders: No Hx Diverticulitis: Yes Hx Nausea: Yes - GENITOURINARY/GYNECOLOGICAL Hx Genitourinary Disorders: No - PSYCHIATRIC Hx Psychophysiologic Disorder: No Hx Substance Use: No - SURGICAL HISTORY Hx Cataract Extraction: Yes (bilateral eyes) Hx Section: Yes (x4) Hx Open Reduction Internal Fixation: Yes (Left arm) Other/Comment: Left arm surgery, bilateral breast biospsies. - ANESTHESIA Hx Anesthesia: Yes Hx Anesthesia Reactions: No Hx Malignant Hyperthermia: No Has any member of the family had a problem w/ anesthesia?: No Meds Allergies/Adverse Reactions: Allergies Allergy/AdvReac Type Severity Reaction Status Date / Time iodine AdvReac VOMITING Verified 12/18/16 15:52 - Medications Medications: Current Medications Acetaminophen (Tylenol 325mg Tab) 650 mg PO Q6 PRN PRN Reason: for moderate pain (4-7) Last Admin: 12/22/16 22:39 Dose: 650 mg Amlodipine Besylate (Norvasc) 5 mg PO DAILY [facility] Last Admin: 12/23/16 09:42 Dose: 5 mg Ascorbic Acid (Vitamin C 500 Mg Tab) 1,000 mg PO DAILY [facility] Last Admin: 12/23/16 09:42 Dose: 1,000 mg Aspirin (Ecotrin) 81 mg PO DAILY [facility] Last Admin: 12/23/16 09:43 Dose: 81 mg Atenolol (Tenormin) 50 mg PO DAILY [facility] Last Admin: 12/23/16 09:43 Dose: 50 mg Calcium/Vitamin D (Oyster Shell Calcium/Vitamin D 500 Mg-200 Iu) 1 tab PO BID [facility] Last Admin: 12/23/16 09:42 Dose: 1 tab Docusate Sodium/Ferrous Fumarate (Mona-Sequels 100 Mg -150 Mg) 1 tab PO DAILY [facility] Last Admin: 12/23/16 09:42 Dose: 1 tab Enoxaparin Sodium (Lovenox) 40 mg SC DAILY [facility] PRN Reason: Protocol Last Admin: 12/23/16 09:42 Dose: 40 mg Ferrous Sulfate (Feosol) 325 mg PO DAILY [facility] Last Admin: 12/23/16 09:43 Dose: 325 mg Home Med (Cinnamon Bark [Cinnamon]) 1,000 mg PO DAILY [facility] Home Med (Plant Stanol Nanette [Cholest Off]) 450 mg PO DAILY [facility] Hydrochlorothiazide (Microzide) 12.5 mg PO DAILY [facility] Last Admin: 12/23/16 09:42 Dose: 12.5 mg Vancomycin HCl 1 gm/ Sodium (Chloride) 250 mls @ 166.667 mls/hr IVPB Q12@0500, 1700 [facility] Last Admin: 12/23/16 04:15 Dose: 166.667 mls/hr Piperacillin Sod/Tazobactam (Sod 3.375 gm/ Sodium Chloride) 100 mls @ 100 mls/ hr IVPB Q6 [facility] Last Admin: 12/23/16 04:15 Dose: 100 mls/hr Magnesium Hydroxide (Milk Of Magnesia) 15 ml PO QID PRN PRN Reason: Constipation Ondansetron HCl (Zofran Inj) 4 mg IVP Q4 PRN PRN Reason: Nausea/Vomiting Last Admin: 12/22/16 08:22 Dose: 4 mg Pantoprazole Sodium (Protonix Ec Tab) 40 mg PO BID [facility] Last Admin: 12/23/16 09:42 Dose: 40 mg Pravastatin Sodium (Pravachol) 20 mg PO HS [facility] Last Admin: 12/22/16 21:29 Dose: 20 mg Physical Exam - Constitutional Appears: Non-toxic, Cachectic, Chronically Ill - Head Exam Head Exam: ATRAUMATIC, NORMAL INSPECTION, NORMOCEPHALIC - Eye Exam Eye Exam: PERRL. absent: Scleral icterus - ENT Exam ENT Exam: Mucous Membranes Dry, Normal External Ear Exam - Neck Exam Neck exam: Negative for: Lymphadenopathy, Thyromegaly - Respiratory Exam Respiratory Exam: Decreased Breath Sounds, Clear to Auscultation Bilateral - Cardiovascular Exam Cardiovascular Exam: REGULAR RHYTHM, +S1, +S2 - GI/Abdominal Exam GI & Abdominal Exam: Diminished Bowel Sounds, Distended, Soft, Tenderness - Rectal Exam Rectal Exam: Deferred - Exam Exam: NORMAL INSPECTION - Extremities Exam Extremities exam: Positive for: pedal pulses present. Negative for: calf tenderness, pedal edema, tenderness - Back Exam Back exam: absent: CVA tenderness (L), CVA tenderness (R), paraspinal tenderness - Neurological Exam Neurological exam: Alert, CN II-XII Intact, Oriented x3, Reflexes Normal - Psychiatric Exam Psychiatric exam: Normal Mood - Skin Skin Exam: Dry, Intact Results - Vital Signs Recent Vital Signs: Last Vital Signs Temp 97.7 F 12/23/16 08:06 Pulse 60 12/23/16 09:43 Resp 20 12/23/16 08:06 BP 161/66 H 12/23/16 09:43 Pulse Ox 96 12/23/16 08:06 - Labs Result Diagrams: 12/22/16 05:35 12/22/16 05:35 Assessment & Plan (1) Diverticulitis Status: Acute - Assessment and Plan (Free Text) Assessment: diarrhea likely dur=e to antibiotics oral rx not an option cont iv rx flagyl/ cefepime
[2016-12-23] MEDS ORDERED: metroNIDAZOLE 500mg/100ml NS 100 ML IVPB SCH (17:00)
[2016-12-23] MEDS: Cefepime 1 GM in Sodium Chloride 0.9% 100 ML IVPB SCH (20:30)
[2016-12-23] MEDS: Pravastatin Sodium 20 MG TAB PO SCH (21:50)
[2016-12-24] MEDS: Piperacillin/Tazobact 3.375 GM IV Q6H IVPB SCH ×4 (04:15→21:58)
[2016-12-24 06:57] LABS: BASO # 0.1 K/uL (0.0-0.2); BASO % 1.4 % (0.0-2.0); EOS # 0.4 K/uL (0.0-0.7); EOS % 6.8 % (0.0-4.0); LYMPH # 1.8 K/uL (1.0-4.3); LYMPH % 31.5 % (20.0-40.0); MEAN CELL VOLUME 85.9 fl (81.0-99.0); MEAN CORPUSCULAR HEMOGLOBIN 28.9 pg (27.0-31.0); MEAN CORPUSCULAR HGB CONC 33.6 g/dL (33.0-37.0); MEAN PLATELET VOLUME 7.3 fl (7.2-11.7); MONO # 0.7 K/uL (0.0-0.8); MONO % 12.7 % (0.0-10.0); NEUT # 2.8 K/uL (1.8-7.0); NEUT % 47.6 % (50.0-75.0); WHITE BLOOD COUNT 5.8 K/uL (4.8-10.8)
[2016-12-24 07:10] LABS: ALKALINE PHOSPHATASE 56 U/L (38-126); ALT/SGPT 32 U/L (9-52); AST/SGOT 28 U/L (14-36); BILIRUBIN,TOTAL 0.4 mg/dl (0.2-1.3); BLOOD UREA NITROGEN 14 mg/dl (7-17); CALCIUM 9.3 mg/dL (8.4-10.2); CARBON DIOXIDE 27 mmol/L (22-30); CHLORIDE 103 mmol/L (98-107); GFR AFRICAN-AMERICAN > 60; GLUCOSE,RANDOM 94 mg/dL (65-105); POTASSIUM 3.2 MMOL/L (3.6-5.0); SODIUM 140 mmol/l (132-148); TOTAL PROTEIN 5.8 G/DL (6.3-8.2)
[2016-12-24 07:28] LABS: ALB/GLOB RATIO 1.2 (1.0-2.1)
[2016-12-24] MEDS: Pantoprazole 40 mg EC Tab PO SCH ×2 (08:52→16:53)
[2016-12-24] MEDS: Calcium-Vit D 500 mg-200 Units Tab UD PO SCH ×2 (08:52→16:52)
[2016-12-24] MEDS: Docusate Sodium/Ferrous Fumara 1 TAB PO SCH (08:52)
[2016-12-24] MEDS: Enoxaparin 40 mg Syringe SC SCH (08:53)
[2016-12-24] MEDS: Cefepime 1 GM in Sodium Chloride 0.9% 100 ML IVPB SCH ×2 (09:03→20:51)
[2016-12-24] MEDS ORDERED: Potassium Chloride 20 mEq/15 ml LIQ UD PO ONE (17:31)
--- NOTE | 2016-12-24 19:35 | PN ---
DATE: 12/24/2016 SUBJECTIVE: The patient seen and examined. Interim events noted. Consults noted and appreciated. intervention noted and appreciated. The patient remains in transition care unit and is on IV antibiotic. Feels okay. Constipation improved. Diarrhea resolved. Tolerated food very well. No chest pain. No shortness of breath. PHYSICAL EXAMINATION: GENERAL: The patient is in no acute distress. VITAL SIGNS: Stable. HEART: S1 and S2, normal and regular. LUNGS: Good bilateral air exchange. ABDOMEN: Soft and nontender. No sign of acute abdomen. No guarding. No rigidity. No rebound. EXTREMITIES: No edema. No calves swelling. No tenderness. No acute ischemia. CENTRAL NERVOUS SYSTEMS: Essentially unchanged. DIAGNOSTIC DATA: Available diagnostic data reviewed. IMPRESSION: Overall, the patient's general medical condition is stable and improving. PLAN: As ordered. Merritt Field MD
[2016-12-24] MEDS: Pravastatin Sodium 20 MG TAB PO SCH (21:53)
[2016-12-25] MEDS: Piperacillin/Tazobact 3.375 GM IV Q6H IVPB SCH ×4 (04:41→21:07)
[2016-12-25 07:16] LABS: ALB/GLOB RATIO 1.3 (1.0-2.1); BILIRUBIN,TOTAL 0.4 mg/dl (0.2-1.3); CALCIUM 9.8 mg/dL (8.4-10.2); TOTAL PROTEIN 5.9 G/DL (6.3-8.2)
[2016-12-25] MEDS: Cefepime 1 GM in Sodium Chloride 0.9% 100 ML IVPB SCH ×2 (09:06→22:21)
[2016-12-25] MEDS: Enoxaparin 40 mg Syringe SC SCH (09:07)
[2016-12-25] MEDS: Pantoprazole 40 mg EC Tab PO SCH ×2 (09:09→17:00)
[2016-12-25] MEDS: Calcium-Vit D 500 mg-200 Units Tab UD PO SCH ×2 (09:09→16:59)
[2016-12-25] MEDS: Docusate Sodium/Ferrous Fumara 1 TAB PO SCH (09:10)
[2016-12-25] MEDS: Pravastatin Sodium 20 MG TAB PO SCH (21:08)
[2016-12-26] MEDS: Piperacillin/Tazobact 3.375 GM IV Q6H IVPB SCH ×4 (04:30→22:42)
--- NOTE | 2016-12-26 08:23 | PN ---
DATE: 12/26/2016 SUBJECTIVE: The patient seen and examined. Interim events noted. The patient remains in transition care unit. The patient feels much better than yesterday. No chest pain. No shortness of breath. No abdominal pain. Diarrhea has resolved. PHYSICAL EXAMINATION: GENERAL: The patient is in no acute distress. VITAL SIGNS: Stable. Physical exam is essentially unchanged. DIAGNOSTIC DATA: Available diagnostic data reviewed. Repeat potassium is normal. IMPRESSION: Overall, the patient's general medical condition is stable. PLAN: As ordered. Merritt Field MD
[2016-12-26] MEDS: Pantoprazole 40 mg EC Tab PO SCH ×2 (09:04→16:29)
[2016-12-26] MEDS: Docusate Sodium/Ferrous Fumara 1 TAB PO SCH (09:04)
[2016-12-26] MEDS: Calcium-Vit D 500 mg-200 Units Tab UD PO SCH ×2 (09:04→16:29)
[2016-12-26] MEDS: Cefepime 1 GM in Sodium Chloride 0.9% 100 ML IVPB SCH ×2 (09:10→21:35)
--- NOTE | 2016-12-26 14:28 | PN ---
DATE: 12/25/2016 SUBJECTIVE: The patient seen and examined. Interim events noted. The patient remains in transitional care unit. Telephone orders were given yesterday for low potassium. The patient still has 2 or 3 loose bowel movements today. No chest pain. No shortness of breath. PHYSICAL EXAMINATION: GENERAL: The patient is in no acute distress. VITAL SIGNS: Stable. HEART: S1 and S2, normal and regular. LUNGS: Good bilateral air exchange. ABDOMEN: Soft and nontender. EXTREMITIES: No edema. No calves swelling. No tenderness. No acute ischemia. CENTRAL NERVOUS SYSTEMS: Essentially unchanged. DIAGNOSTIC DATA: Available diagnostic data reviewed. IMPRESSION: Overall, the patient's general medical condition is stable. PLAN: As ordered. Merritt Field MD
[2016-12-26] MEDS: Pravastatin Sodium 20 MG TAB PO SCH (23:46)
[2016-12-27] MEDS: Piperacillin/Tazobact 3.375 GM IV Q6H IVPB SCH ×4 (03:49→21:03)
[2016-12-27] MEDS: Pantoprazole 40 mg EC Tab PO SCH ×2 (08:40→16:40)
[2016-12-27] MEDS: Calcium-Vit D 500 mg-200 Units Tab UD PO SCH ×2 (08:40→16:39)
[2016-12-27] MEDS: Docusate Sodium/Ferrous Fumara 1 TAB PO SCH (08:42)
[2016-12-27 09:02] VITALS: RESP 20
--- NOTE | 2016-12-27 09:22 | PN ---
DATE: 12/27/2016 SUBJECTIVE: The patient seen and examined. Interim events noted. The patient remains in Transition Care Unit. She feels okay. She denies any specific complaints of chest pain or shortness of breath. PHYSICAL EXAMINATION: GENERAL: The patient is in no acute distress. VITAL SIGNS: Stable. HEART: S1 and S2, normal and regular. LUNGS: Good bilateral air exchange. ABDOMEN: Soft and nontender. EXTREMITIES: No edema. No calve swelling. No tenderness. No acute ischemia. CENTRAL NERVOUS SYSTEMS: Essentially unchanged. DIAGNOSTIC DATA: Available diagnostic data reviewed. IMPRESSION: Overall, the patient's general medical condition is stable. PLAN: As ordered. Merritt Field MD
[2016-12-27] MEDS: Cefepime 1 GM in Sodium Chloride 0.9% 100 ML IVPB SCH ×2 (12:15→21:00)
[2016-12-27] MEDS: Pravastatin Sodium 20 MG TAB PO SCH (21:11)
[2016-12-28] MEDS: Piperacillin/Tazobact 3.375 GM IV Q6H IVPB SCH ×2 (05:05→09:54)
[2016-12-28] MEDS: Docusate Sodium/Ferrous Fumara 1 TAB PO SCH (08:45)
[2016-12-28] MEDS: Pantoprazole 40 mg EC Tab PO SCH ×2 (08:45→16:36)
[2016-12-28] MEDS: Calcium-Vit D 500 mg-200 Units Tab UD PO SCH ×2 (08:45→16:36)
[2016-12-28] MEDS: Cefepime 1 GM in Sodium Chloride 0.9% 100 ML IVPB SCH ×2 (08:49→21:26)
--- NOTE | 2016-12-28 10:37 | PN ---
DATE: 12/28/2016 SUBJECTIVE: The patient seen and examined. Interim events noted. The patient remains in transitional care unit. . Diarrhea is improving. No chest pain. No shortness of breath. The patient is able to do her ADL and is back to status. PHYSICAL EXAMINATION: GENERAL: The patient is in no acute distress. VITAL SIGNS: Stable. HEART: S1 and S2, normal and regular. LUNGS: Good bilateral air exchange. ABDOMEN: Soft and nontender. No organomegaly. No fluid. Bowel sounds are present. No sign of acute abdomen. No guarding, no rigidity, no rebound. EXTREMITIES: No edema. No calve swelling. No tenderness. No acute ischemia. CENTRAL NERVOUS SYSTEMS: Essentially unchanged. DIAGNOSTIC DATA: Available diagnostic data reviewed. IMPRESSION: Overall, the patient is medically stable. The patient is going to be tentatively discharged home tomorrow. PLAN: Case and plan discussed with the patient. Merritt Field MD
[2016-12-29] MEDS: Pravastatin Sodium 20 MG TAB PO SCH (01:29)
[2016-12-29 08:01] VITALS: PULSE 68; TEMP 98.2; O2SAT 99
[2016-12-29] MEDS: Pantoprazole 40 mg EC Tab PO SCH (08:28)
[2016-12-29] MEDS: Docusate Sodium/Ferrous Fumara 1 TAB PO SCH (08:29)
[2016-12-29] MEDS: Calcium-Vit D 500 mg-200 Units Tab UD PO SCH (08:29)
--- NOTE | 2016-12-29 09:41 | PN ---
DATE: 12/29/2016 SUBJECTIVE: The patient is seen and examined. Interim events noted. The patient is in transitional care unit. No chest pain. No shortness of breath. No abdominal pain. No constipation or diarrhea. PHYSICAL EXAMINATION: GENERAL: The patient is in no acute distress. VITAL SIGNS: Stable. HEART: S1 and S2 normal regular. LUNGS: Good bilateral air entry. ABDOMEN: Soft and nontender. EXTREMITIES: No edema. No calve swelling. No tenderness. No acute ischemia. CENTRAL NERVOUS SYSTEMS: Essentially unchanged. DIAGNOSTIC DATA: Available diagnostic data reviewed. ASSESSMENT AND PLAN: Overall, the patient is medically stable. The patient is for possible discharge today. Discharge plan explained to the patient. Case and plan discussed with the patient. The patient will be followed up by primary care physician. Merritt Field MD
[2016-12-29 10:49] VITALS: BP 132/58
== END 2016-12-29 10:32 | disposition home or self-care (01) | DRG 392 ==
LOC: H.TCU 23:26
PROVIDERS: ADMIT Internal Medicine; ATTEND Internal Medicine
DX: K57.92 Diverticulitis of intestine, part unspecified, without perforation or abscess without bleeding (principal); I10 Essential (primary) hypertension; E78.00 Pure hypercholesterolemia, unspecified; K59.00 Constipation, unspecified; M19.90 Unspecified osteoarthritis, unspecified site; H26.9 Unspecified cataract; K52.9 Noninfective gastroenteritis and colitis, unspecified

== ENCOUNTER 2017-05-06 21:09 | Inpatient (IN) | payer MEDICARE ==
[2017-05-06 21:09] VITALS: BMI 21.3
--- NOTE | 2017-05-06 23:00 | ED PDOC ---
HPI: General Adult Time Seen by Provider: 05/06/17 21:43 Chief Complaint (Nursing): GI Problem Chief Complaint (Provider): Rectal bleeding History Per: Patient History/Exam Limitations: no limitations Onset/Duration Of Symptoms: Hrs (7 hours ago) Current Symptoms Are (Timing): Still Present Additional Complaint(s): 86 y/o female with a history of HTN, polymyalgia rheumatica, diverticulitis, and hyperlipidemia, presents to the ED complaining of rectal bleeding onset of 7 hours ago. Patient reports of a total of 3-4 episodes of having bloody bowel movements with one non-bloody, non-bilious vomiting, but denies pain, burning, or nausea. Of note, patient had 1 episode of diarrhea prior to onset of bloody stools. Earlier today the patient had a normal appetite, but currently is only able to tolerate water. She denies bleeding elsewhere, taking any blood thinners, or eating any red foods or drinks. pcp: Wing Elmore V Past Medical History Reviewed: Historical Data, Nursing Documentation, Vital Signs Vital Signs: Last Vital Signs Temp 99.3 F 05/06/17 21:34 Pulse 74 05/06/17 21:34 Resp 18 05/06/17 21:34 BP 164/45 H 05/06/17 21:34 Pulse Ox 95 05/06/17 23:05 - Medical History PMH: Arthritis, Diverticulitis, Fractures (compression fx to back), HTN, Hypercholesterolemia Denies: HIV, Hyperthyroidism, Chronic Kidney Disease - Surgical History Surgical History: (x4) - Family History Family History: States: Unknown Family Hx - Social History Current smoker - smoking cessation education provided: No Ex-Smoker (has not smoked in the last 12 months): No Alcohol: None Drugs: Denies - Home Medications Home Medications: Ambulatory Orders Medication Instructions Recorded Ascorbic Acid [Vitamin C] 1,000 mg PO DAILY 06/26/15 Aspirin [Aspirin EC] 81 mg PO DAILY 06/26/15 Atenolol [Tenormin] 50 mg PO DAILY 06/26/15 Calcium Carbonate/Vitamin D3 1 tab PO BID 06/26/15 [Calcium 600-Vit D3 400 Caplet] Cinnamon Bark [Cinnamon] 1,000 mg PO DAILY 06/26/15 Hydrochlorothiazide [HCTZ] 12.5 mg PO DAILY 06/26/15 Lovastatin 20 mg PO HS 06/26/15 amLODIPine [Norvasc] 5 mg PO DAILY 06/26/15 Ferrous Sulfate 325 mg PO DAILY 12/19/16 Omeprazole 40 mg PO BID 12/19/16 Plant Stanol Nanette [Cholest Off] 450 mg PO DAILY 12/19/16 - Allergies Allergies/Adverse Reactions: Allergies Allergy/AdvReac Type Severity Reaction Status Date / Time iodine AdvReac VOMITING Verified 12/18/16 15:52 Review of Systems ROS Statement: Except As Marked, All Systems Reviewed And Found Negative Constitutional: Negative for: Fever Cardiovascular: Negative for: Chest Pain Respiratory: Negative for: Shortness of Breath Gastrointestinal: Positive for: Vomiting, Diarrhea, Hematochezia. Negative for : Nausea, Constipation, Hematemesis, Rectal Pain Neurological: Positive for: Other (lightheadedness) Physical Exam - Reviewed Nursing Documentation Reviewed: Yes Vital Signs Reviewed: Yes - Physical Exam Appears: Positive for: Non-toxic, No Acute Distress Head Exam: Positive for: ATRAUMATIC, NORMOCEPHALIC Skin: Positive for: Warm, Dry Eye Exam: Positive for: EOMI, PERRL ENT: Negative for: Pharyngeal Erythema, Tonsillar Exudate Neck: Positive for: Painless ROM, Supple Cardiovascular/Chest: Positive for: Regular Rate, Rhythm, Chest Non Tender. Negative for: Murmur Respiratory: Positive for: Normal Breath Sounds. Negative for: Wheezing Gastrointestinal/Abdominal: Positive for: Bowel Sounds, Soft. Negative for: Tenderness, Mass, Distended, Guarding, Rebound Back: Positive for: Normal Inspection. Negative for: Decreased ROM Rectal: Positive for: Rectal Tone Is: (normal), Other (dried dark brown/black substance surrounding rectum). Negative for: Hemorrhoids, Mass, Tenderness Extremity: Positive for: Normal ROM. Negative for: Deformity Lymphatic: Negative for: Adenopathy Neurologic/Psych: Positive for: Alert. Negative for: Motor/Sensory Deficits - Laboratory Results Result Diagrams: 05/06/17 23:05 - ECG O2 Sat by Pulse Oximetry: 95 (RA) Pulse Ox Interpretation: Normal Medical Decision Making Medical Decision Making: Time: --22:06 Impression: --GI bleed Differential: --anemia, coagulopathy, diverticulosis Plan: --Blood Type and Screen --ECG --Labs --Lipase --magnesium --Phosphours --ED urine Dip --pTT --prothrombin Time --blood culture --occult blood, stool Reassess -- Scribe Attestation: Documented by Jamaal Petty acting as a scribe for Monalisa Back MD. Provider Attestation: All medical record entries made by the Scribe were at my direction and personally dictated by me. I have reviewed the chart and agree that the record accurately reflects my personal performance of the history, physical exam, medical decision making, and the department course for this patient. I have also personally directed, reviewed, and agree with the discharge instructions and disposition. Disposition - Disposition Condition: STABLE Forms: [employer] ([place]ian)
[2017-05-06 23:19] LABS: BASO % 0.4 % (0.0-2.0); EOS % 0.4 % (0.0-4.0); HEMOGLOBIN 11.8 g/dL (12.0-16.0); LYMPH # 1.1 K/uL (1.0-4.3); LYMPH % 10.2 % (20.0-40.0); MEAN CELL VOLUME 89.7 fl (81.0-99.0); MEAN CORPUSCULAR HEMOGLOBIN 29.7 pg (27.0-31.0); MEAN CORPUSCULAR HGB CONC 33.1 g/dL (33.0-37.0); MEAN PLATELET VOLUME 7.8 fl (7.2-11.7); MONO # 0.7 K/uL (0.0-0.8); MONO % 6.2 % (0.0-10.0); NEUT # 9.3 K/uL (1.8-7.0); NEUT % 82.8 % (50.0-75.0); RBC 3.97 Mil/uL (3.80-5.20); RED CELL DISTRIBUTION WIDTH 13.5 % (11.5-14.5); WHITE BLOOD COUNT 11.2 K/uL (4.8-10.8)
[2017-05-06 23:53] LABS: ALB/GLOB RATIO 1.3 (1.0-2.1); ALBUMIN 4.1 g/dL (3.5-5.0); CALCIUM 10.4 mg/dL (8.4-10.2); MAGNESIUM 1.8 MG/DL (1.6-2.3)
[2017-05-06 23:59] LABS: INR 0.9 (0.9-1.2); PARTIAL THROMBOPLASTIN TIME 24.6 Seconds (25.6-37.1); PROTHROMBIN TIME 9.9 Seconds (9.8-13.1)
[2017-05-07] MEDS ORDERED: Dextrose 5%/0.9% NS 1,000 ML IV STA (00:08)
[2017-05-07] MEDS: Dextrose 5%/0.45% NS 1,000 ML IV SCH ×2 (02:27→14:51)
[2017-05-07 06:57] LABS: HEMOGLOBIN 10.6 g/dL (12.0-16.0); MEAN CELL VOLUME 89.8 fl (81.0-99.0); MEAN CORPUSCULAR HEMOGLOBIN 29.4 pg (27.0-31.0); MEAN CORPUSCULAR HGB CONC 32.8 g/dL (33.0-37.0); RBC 3.59 Mil/uL (3.80-5.20); RED CELL DISTRIBUTION WIDTH 13.2 % (11.5-14.5); WHITE BLOOD COUNT 12.3 K/uL (4.8-10.8)
[2017-05-07] MEDS ORDERED: PREDNISOLONE 5 MG PO SCH (09:00)
[2017-05-07] MEDS ORDERED: Iohexol 240 (50 ml) PO ONE (12:02)
--- NOTE | 2017-05-07 12:58 | HP ---
HISTORY OF PRESENT ILLNESS: Ms. Calderon is an 86-year-old female who was admitted because of acute onset of rectal bleeding for about 7 hours prior to presentation. She denies any abdominal pain, but has had multiple episodes of bloody diarrhea stool for the past several hours. She denies nausea, vomiting or abdominal discomfort. PAST MEDICAL HISTORY: Remarkable for hypertension, polymyalgia rheumatica, diverticular disease and hyperlipidemia. FAMILY HISTORY: Unremarkable. SOCIAL HISTORY: Does not smoke or drink and she lives alone. REVIEW OF SYSTEMS: Essentially unremarkable. PHYSICAL EXAMINATION: GENERAL: The patient is alert and oriented, feels weak. VITAL SIGNS: Blood pressure 164/45, pulse of 74, respiratory rate 18, she is afebrile to low grade temp of 99.3 degrees Fahrenheit, O2 sat 95% on room air. SKIN: Shows fair turgor. HEENT: Pupils equal and reactive to light and accommodation. Mouth shows fair hygiene. JVP flat. LUNGS: Clear. HEART: Regular. No murmurs or gallops. ABDOMEN: Soft, nontender. No organomegaly. EXTREMITIES: Shows arthritic changes. CENTRAL NERVOUS SYSTEM: Grossly intact. RECTAL: Remarkable for bloody stool. GENITALIA: Normal. LABORATORY DATA: WBC 11.2, hemoglobin 11.8 and platelet count 291,000. Repeat CBC this morning shows a hemoglobin of 10.6. Sodium 137, potassium 3.8, BUN 35, creatinine 1.6, serum glucose 141, lipase 83. IMPRESSION: Acute gastrointestinal bleeding, one has to rule out due to diverticular disease; anemia due to blood loss; history of polymyalgia rheumatica; hyperlipidemia and diverticular disease. PLAN: IV hydration, clear liquid diet, monitor H and H. We will obtain gastroenterology consult for possible colonoscopy. Replace or transfuse blood if hemoglobin drops lower than 8 g. We will continue therapy as ordered. Jeffrey Sanford MD
--- NOTE | 2017-05-07 14:19 | RAD ---
HISTORY: hypertension COMPARISON: Comparison chest dated 04/11/20172015 TECHNIQUE: Chest PA and lateral FINDINGS: LUNGS: Persistent next elevation right hemidiaphragm possibly due to eventration. Suspect mild bibasilar atelectasis PLEURA: No significant pleural effusion identified. No pneumothorax apparent. CARDIOVASCULAR: Cardiomegaly. OSSEOUS STRUCTURES: No significant abnormalities. VISUALIZED UPPER ABDOMEN: Normal. OTHER FINDINGS: None. IMPRESSION: No persistent elevation right hemidiaphragm possibly due to eventration. Suspect mild bibasilar atelectasis
--- NOTE | 2017-05-07 16:11 | CT ---
PROCEDURE: CT scan of the abdomen dated 04/29/2017. HISTORY: Diverticular disease; gastrointestinal bleeding COMPARISON: Comparison made with prior study 12/18/2016 TECHNIQUE: Contiguous helical/transaxial sections of the abdomen performed without oral or intravenous contrast material. . Coronal and Sagittal reformats generated. Radiation dose: Total exam DLP = mGy-cm. This CT exam was performed using one or more of the following dose reduction techniques: Automated exposure control, adjustment of the mA and/or kV according to patient size, and/or use of iterative reconstruction technique. FINDINGS: LOWER THORAX: Subsegmental linear atelectasis and or scarring right lung base. Minor scarring changes in the right middle lobe as well as left lung base including the lingular regions. No effusion or basilar pneumothorax. Heart appears enlarged. No significant pericardial effusion. There is a tiny hiatal hernia with slight wall thickening of the distal esophagus likely due to protrusion gastric mucosa. Esophagitis not excluded. LIVER: Liver exhibits normal size measuring approximately 13.3 cm in CC dimension. No obvious hepatic mass or collection identified on this noncontrast exam. GALLBLADDER AND BILE DUCTS: The gallbladder is incompletely distended. No obvious radiopaque or calcified gallstones are identified. The questionable Phrygian cap. PANCREAS: Pancreas appears atrophic and fatty replaced. No obvious pancreatic masses collections or calcifications. SPLEEN: Spleen exhibits normal size and attenuation pattern without mass collection or calcification. . ADRENALS: Nodular left adrenal gland. KIDNEYS AND URETERS: Kidneys demonstrate relatively symmetric size. There is an 6.2 mm nonobstructing calculus calcification in the right renal hilar region that could be vascular however no evidence of hydronephrosis. BLADDER: NA; Urinary bladder has not been imaged on this exam. REPRODUCTIVE: NA APPENDIX: Appendix is not visualized on this study. BOWEL: Evaluation of the bowel is limited due to the lack of oral contrast material as well as incomplete visualization as the pelvis was not imaged on this exam. Stomach is partially distended with food debris liquid and air. Visualized loops of small bowel exhibit relatively normal contour and caliber. No evidence of acute mechanical small bowel obstruction. There are scattered colonic diverticula seen along the right colon however no definitive radiographic evidence of acute diverticulitis. PERITONEUM: Unremarkable. No fluid collection. No free air. LYMPH NODES: Unremarkable. No enlarged lymph nodes. VASCULATURE: Vascular calcifications along the abdominal aorta and at the origins of the renal arteries and to a lesser degree SMA. BONES: Mild multilevel degenerative spondylosis of the lower thoracic and lumbar spine. OTHER FINDINGS: None. IMPRESSION: Limited study CT scan of the abdomen without pelvis demonstrates mild atelectasis and or scarring changes both lung bases. Cardiomegaly. . Nodular appearing left adrenal gland. There are few scattered colonic diverticula seen along the right colon however no radiographic evidence of acute diverticulitis.
--- NOTE | 2017-05-08 03:48 | CON ---
DATE: 05/07/2017 REFERRING PHYSICIAN: Jeffrey Sanford MD. REASON FOR CONSULTATION: Rectal bleeding, abdominal discomfort, and diarrhea. HISTORY OF PRESENT ILLNESS: This is a hector 86-year-old female known to my office with history of hypertension, polymyalgia rheumatica, history of diverticulitis in the past, hyperlipidemia, comes in for rectal bleeding for about 1 day or so, had a couple of episodes of some diarrhea and loose stools with bloody bowel movements, all of which has resolved. No fevers, chills, nausea, or vomiting. Currently, lying in bed, comfortable, in no apparent distress. PAST MEDICAL HISTORY: As above. PAST SURGICAL HISTORY: As above. MEDICATIONS: Have been reviewed. REVIEW OF SYSTEMS: All other systems have been reviewed and are negative apart from the HPI. PHYSICAL EXAMINATION: GENERAL: This is a pleasant elderly-appearing female, lying in bed comfortably, in no apparent distress. VITAL SIGNS: Here in the hospital, are grossly unremarkable. HEENT: Head is normocephalic and atraumatic. Eyes: Pupils are equally reactive to light bilaterally. No conjunctival pallor or icterus. NECK: Supple. Normal range of motion. No lymphadenopathy appreciated. LUNGS: Coarse breath sounds bilaterally. HEART: S1 and S2. Regular rate and rhythm. No murmurs appreciated. ABDOMEN: Soft, some distention, nontender. Bowel sounds are present. Some discomfort in the left lower quadrant. No rebound. No guarding. RECTAL: Deferred. EXTREMITIES: Pulses present bilaterally. SKIN: Warm, dry, and intact. NEUROLOGIC: A and O x3. LABORATORY DATA: All labs and relevant radiology have been reviewed. The labs include WBC 12.3, which is up; hemoglobin of 10.6, which is of course a little bit down; platelet count of 259. Calcium 10.4. Creatinine 1.6. ASSESSMENT AND PLAN: This is a 86-year-old female with rectal bleeding. I suspect this is diverticulitis or possibly colitis. CAT scan is pending for now. N.p.o. until he is . Thank you for the consult. Andrea Longo MD/ PhD cc: Jeffrey Sanford MD [facility] # [id number]
[2017-05-08 06:57] LABS: BASO % 0.5 % (0.0-2.0); EOS # 0.1 K/uL (0.0-0.7); EOS % 1.5 % (0.0-4.0); HEMOGLOBIN 9.8 g/dL (12.0-16.0); LYMPH % 21.6 % (20.0-40.0); MEAN CELL VOLUME 88.5 fl (81.0-99.0); MEAN CORPUSCULAR HEMOGLOBIN 30.6 pg (27.0-31.0); MEAN CORPUSCULAR HGB CONC 34.6 g/dL (33.0-37.0); MEAN PLATELET VOLUME 7.9 fl (7.2-11.7); MONO % 10.8 % (0.0-10.0); NEUT # 6.1 K/uL (1.8-7.0); NEUT % 65.6 % (50.0-75.0); RBC 3.19 Mil/uL (3.80-5.20); RED CELL DISTRIBUTION WIDTH 13.4 % (11.5-14.5); WHITE BLOOD COUNT 9.2 K/uL (4.8-10.8)
[2017-05-08 07:14] LABS: BLOOD UREA NITROGEN 18 mg/dl (7-17); CALCIUM 9.1 mg/dL (8.4-10.2); GFR AFRICAN-AMERICAN > 60; GFR NON-AFRICAN AMERICAN 53
[2017-05-08 08:40] VITALS: BP 112/66; PULSE 75; RESP 20; TEMP 98.5; O2SAT 97
[2017-05-08] MEDS ORDERED: Potassium Chloride 20 mEq ER Tab PO ONE (08:55)
--- NOTE | 2017-05-08 08:58 | CP.PCM.PN ---
Subjective - Date & Time of Evaluation Date of Evaluation: 05/08/17 Time of Evaluation: 08:59 - Subjective Subjective: FEELS BETTER NO RECURRENCE OF RECTAL BLEEDING WANTS TO GO HOME Objective - Vital Signs/Intake and Output Vital Signs (last 24 hours): Temp Pulse Resp BP Pulse Ox 98.5 F 75 20 112/66 97 05/08/17 08:40 05/08/17 08:46 05/08/17 08:40 05/08/17 08:46 05/08/17 08:40 - Medications Medications: Current Medications Acetaminophen (Tylenol 325mg Tab) 650 mg PO Q6 PRN PRN Reason: Pain, Mild (1-3) Last Admin: 05/07/17 16:46 Dose: 650 mg Atenolol (Tenormin) 50 mg PO DAILY [facility] Last Admin: 05/08/17 08:46 Dose: 50 mg Atorvastatin Calcium (Lipitor) 5 mg PO HS [facility] Last Admin: 05/07/17 21:14 Dose: 5 mg Hydrochlorothiazide (Hydrodiuril) 25 mg PO DAILY [facility] Last Admin: 05/08/17 08:45 Dose: 25 mg Lisinopril (Zestril) 20 mg PO DAILY [facility] Last Admin: 05/08/17 08:45 Dose: 20 mg Pantoprazole Sodium (Protonix Inj) 40 mg IVP DAILY [facility] Last Admin: 05/08/17 08:46 Dose: 40 mg Potassium Chloride (K-Dur 20 Meq Er Tab) 20 meq PO ONCE ONE Stop: 05/08/17 08:56 Prednisone (Prednisone Tab) 5 mg PO DAILY [facility] Last Admin: 05/08/17 08:45 Dose: 5 mg - Labs Labs: 05/08/17 06:10 05/08/17 06:10 PT 9.9 Seconds (9.8-13.1) 05/06/17 23:05 INR 0.9 (0.9-1.2) 05/06/17 23:05 APTT 24.6 Seconds (25.6-37.1) L 05/06/17 23:05 - Constitutional Appears: No Acute Distress - Head Exam Head Exam: ATRAUMATIC, NORMAL INSPECTION, NORMOCEPHALIC - Eye Exam Eye Exam: EOMI, Normal appearance, PERRL Pupil Exam: NORMAL ACCOMODATION, PERRL - ENT Exam ENT Exam: Mucous Membranes Moist, Normal Exam - Neck Exam Neck Exam: Full ROM, Normal Inspection. absent: Lymphadenopathy - Respiratory Exam Respiratory Exam: Clear to Ausculation Bilateral, NORMAL BREATHING PATTERN - Cardiovascular Exam Cardiovascular Exam: REGULAR RHYTHM, +S1, +S2. absent: Murmur - GI/Abdominal Exam GI & Abdominal Exam: Soft, Normal Bowel Sounds. absent: Tenderness - Rectal Exam Rectal Exam: NORMAL INSPECTION - Extremities Exam Extremities Exam: Full ROM, Normal Capillary Refill, Normal Inspection. absent : Joint Swelling, Pedal Edema - Back Exam Back Exam: NORMAL INSPECTION - Neurological Exam Neurological Exam: Alert, Awake, CN II-XII Intact, Normal Gait, Oriented x3 - Psychiatric Exam Psychiatric exam: Normal Affect, Normal Mood - Skin Skin Exam: Dry, Intact, Normal Color, Warm Assessment and Plan - Assessment and Plan (Free Text) Assessment: GASTRINTESTINAL BLEEDING-RESOLVED ANEMIA DIVERTICULAR DZ L ADRENAL DENSITY HYPOKALEMIA Plan: D/C IV FLUIDS AWAIT GI EVAL RE-FURTHER INTERVENTION REPLACE K+
--- NOTE | 2017-05-08 12:54 | CARD ---
APPROVED REPORT EKG Measurement Heart [id number] <Conclusion> Normal sinus rhythm Voltage criteria for left ventricular hypertrophy Abnormal ECG
== END 2017-05-08 15:00 | disposition home or self-care (01) | DRG 379 ==
LOC: H.ER 21:09 → H.ERHOLD 23:58 → H.MEDSURG1 05-07 01:34 → OBSVTOIN 05-07 12:06
PROVIDERS: ADMIT Internal Medicine Pulmonary Disease; ATTEND Internal Medicine Pulmonary Disease
DX: K57.33 Diverticulitis of large intestine without perforation or abscess with bleeding (principal); D50.0 Iron deficiency anemia secondary to blood loss (chronic); E87.6 Hypokalemia; M35.3 Polymyalgia rheumatica; E78.5 Hyperlipidemia, unspecified; I10 Essential (primary) hypertension; M19.90 Unspecified osteoarthritis, unspecified site; Z79.82 Long term (current) use of aspirin; Z79.899 Other long term (current) drug therapy; Z91.041 Radiographic dye allergy status

== ENCOUNTER 2018-02-07 13:52 | Emergency (ER) | payer MEDICARE ==
[2018-02-07 13:52] VITALS: BMI 21.3
[2018-02-07 14:10] VITALS: TEMP 97.9
[2018-02-07] MEDS ORDERED: Sodium Chloride 0.9% 1,000 ML IV STA (14:21)
--- NOTE | 2018-02-07 14:25 | ED PDOC ---
HPI: General Adult Time Seen by Provider: 02/07/18 14:14 Chief Complaint (Nursing): Abnormal Labs History Per: Patient Onset/Duration Of Symptoms: Other (2 weeks) Current Symptoms Are (Timing): Still Present Additional Complaint(s): Referred by PMD for fatigue x 2 weeks. Outpt blood work from 2 days ago revealed mildly elevated BUN/Creat and hypokalemia. Pt denies fever or cough. Denies chest pain or SOB. Denies vomiting but has had occasional diarrhea. Denies blood in stool. Being followed by nephrology for recently Dx'ed renal insufficiency. Past Medical History Vital Signs: Last Vital Signs Temp 97.9 F 02/07/18 14:06 Pulse 71 02/07/18 14:06 Resp 18 02/07/18 14:06 BP 171/72 H 02/07/18 14:06 Pulse Ox 96 02/07/18 14:06 - Medical History PMH: Arthritis, Diverticulitis, Fractures (compression fx to back), HTN, Hypercholesterolemia, Osteoporosis Denies: HIV, Hyperthyroidism, Chronic Kidney Disease - Surgical History Surgical History: (x4) - Family History Family History: States: Unknown Family Hx - Home Medications Home Medications: Ambulatory Orders Medication Instructions Recorded Atenolol [Tenormin] 50 mg PO DAILY 06/26/15 Lovastatin 20 mg PO HS 06/26/15 amLODIPine [Norvasc] 5 mg PO DAILY 06/26/15 Omeprazole 20 mg PO DAILY 12/19/16 Lisinopril/Hydrochlorothiazide 1 tab PO DAILY 05/07/17 [Lisinopril-Hctz 20-25 mg Tab] Prednisolone [Millipred] 5 mg PO DAILY 05/07/17 - Allergies Allergies/Adverse Reactions: Allergies Allergy/AdvReac Type Severity Reaction Status Date / Time iodine AdvReac VOMITING Verified 02/07/18 14:05 Review of Systems ROS Statement: Except As Marked, All Systems Reviewed And Found Negative Constitutional: Positive for: Other (Fatigue) Physical Exam - Reviewed Nursing Documentation Reviewed: Yes Vital Signs Reviewed: Yes - Physical Exam Appears: Positive for: Non-toxic, No Acute Distress Head Exam: Positive for: ATRAUMATIC, NORMAL INSPECTION, NORMOCEPHALIC Skin: Positive for: Normal Color, Warm, DRY Eye Exam: Positive for: EOMI, Normal appearance, PERRL ENT: Positive for: Normal ENT Inspection Neck: Positive for: Normal, Painless ROM Cardiovascular/Chest: Positive for: Regular Rate, Rhythm Respiratory: Positive for: CNT, Normal Breath Sounds Gastrointestinal/Abdominal: Positive for: Normal Exam, Soft Back: Positive for: Normal Inspection Extremity: Positive for: Normal ROM Neurologic/Psych: Positive for: Alert, Oriented - Laboratory Results Result Diagrams: 02/07/18 14:31 02/07/18 14:31 - ECG O2 Sat by Pulse Oximetry: 96 Disposition - Clinical Impression Clinical Impression: Hypokalemia - Patient ED Disposition Is Patient to be Admitted: Transfer of Care - Disposition Disposition: Transfer of Care Disposition Time: 15:00 Condition: FAIR Forms: GREE (Croatian) Patient Signed Over To: Monalisa Back
[2018-02-07 14:34] LABS: BASO # 0.2 K/uL (0.0-0.2); BASO % 1.2 % (0.0-2.0); EOS # 0.1 K/uL (0.0-0.7); EOS % 0.4 % (0.0-4.0); HEMOGLOBIN 12.3 g/dL (12.0-16.0); LYMPH # 2.1 K/uL (1.0-4.3); LYMPH % 15.7 % (20.0-40.0); MEAN CELL VOLUME 88.2 fl (81.0-99.0); MEAN CORPUSCULAR HEMOGLOBIN 30.8 pg (27.0-31.0); MEAN PLATELET VOLUME 7.1 fl (7.2-11.7); MONO % 7.7 % (0.0-10.0); NEUT # 9.8 K/uL (1.8-7.0); NRBC % 0.2 % (0.0-0.0); RBC 3.98 Mil/uL (3.80-5.20); RED CELL DISTRIBUTION WIDTH 13.5 % (11.5-14.5)
[2018-02-07 14:46] LABS: ALB/GLOB RATIO 1.4 (1.0-2.1); ALBUMIN 4.4 g/dL (3.5-5.0); CALCIUM 11.2 mg/dL (8.4-10.2)
[2018-02-07] MEDS ORDERED: Potassium Chloride 20 mEq 100 ML IVPB ONE (14:49)
[2018-02-07] MEDS ORDERED: Potassium Chloride 20 mEq ER Tab PO ONE ×2 (14:49→16:35)
[2018-02-07 16:34] LABS: SQUAMOUS EPITHIAL < 1 /hpf (0-5); URINE BILIRUBIN NEGATIVE (NEGATIVE); URINE BLOOD NEGATIVE (NEGATIVE); URINE CLARITY CLEAR (Clear); URINE COLOR YELLOW (YELLOW); URINE GLUCOSE (UA) NEG (Normal); URINE LEUKOCYTE ESTERASE NEG Leu/uL (Negative); URINE PROTEIN NEGATIVE (NEGATIVE); URINE UROBILINOGEN 0.2-1.0 mg/dL (0.2-1.0)
--- NOTE | 2018-02-07 17:01 | ED PDOC ---
- Laboratory Results Result Diagrams: 02/07/18 14:31 02/07/18 14:31 - ECG O2 Sat by Pulse Oximetry: 94 Medical Decision Making Medical Decision Makin:00 -Patient endorsed to provider by Dr. Whitley with dehydration pending IV fluids hydration and urine results 16:50 Urine shows hyaline casts but no infection. Discussed with patient findings and Pt. is medically stable for discharge home and was advised to follow up. Scribe Attestation: Documented by Rory Wolf acting as a scribe for Monalisa Back MD Provider Scribe Attestation: All medical record entries made by the Scribe were at my direction and personally dictated by me. I have reviewed the chart and agree that the record accurately reflects my personal performance of the history, physical exam, medical decision making, and the department course for this patient. I have also personally directed, reviewed, and agree with the discharge instructions and di sposition. Disposition - Clinical Impression Clinical Impression: Hypokalemia - Disposition Condition: FAIR Forms: [employer] (Closed) (Burkinan)
[2018-02-07] MEDS: Potassium CL 10 MEQ/50 ML 50 ML IV SCH ×2 (17:04→18:02)
[2018-02-07 19:03] VITALS: BP 154/63; PULSE 71; RESP 18; O2SAT 96
== END 2018-02-07 19:00 | disposition home or self-care (01) ==
LOC: H.ER 13:52
DX: E87.6 Hypokalemia (principal)
CPT/HCPCS: 80053; 81003; 85025; 96360; 96361; 99282; J3480; J7030